=== PATIENT | female | born 1960 | race Caucasian/White ===

== ENCOUNTER 2017-01-17 10:30 | Inpatient (IN) | payer OTHER ==
[~2017-01-17] VITALS: Ht 157.5 cm; Wt 67.6 kg
[~2017-01-17 10:30] MED LIST: IPRA3AMP IH
--- NOTE | 2017-01-17 10:30 | NUR ---
Patient was BIBA and taken to bed 02 via gurney per EMS.
[2017-01-17 10:32] VITALS: BP 114/73
--- NOTE | 2017-01-17 10:45 | NUR ---
56 YO FEMALE BIB EMS FROM HOME FOR ABDOMINAL PAIN, VOMITING AND DIARRHEA. HX OF COPD STARTED LAST NIGHT. SKIN IS PINK/WARM/DRY; AAOX4 WITH EVEN AND STEADY GAIT; LUNGS CLEAR BL; HR EVEN AND REGULAR; PT DENIES ANY FEVER, CP, SOB, OR COUGH AT THIS TIME; PATIENT STATES PAIN OF 5/10 AT THIS TIME; VSS; PATIENT POSITIONED FOR COMFORT; HOB ELEVATED; BEDRAILS UP X2; BED DOWN. ER MD MADE AWARE OF PT STATUS.
[2017-01-17] MEDS ORDERED: NACL 0.9% 1,000 ML IV ONE (11:00)
--- NOTE | 2017-01-17 11:06 | NUR ---
XRAY at bedside.
[2017-01-17] MEDS ORDERED: PANTOPRAZOLE 40 MG INJ VIAL IVP ONE (11:35)
[2017-01-17] MEDS ORDERED: ASPIRIN 81 MG TAB.CHEW PO ONE (11:35)
[2017-01-17] MEDS ORDERED: MORPHINE SULFATE 2 MG/ML SYR IVP ONE (11:35)
[2017-01-17 11:41] LABS: HEMATOCRIT 45.7 % (36-48); HEMOGLOBIN 15.2 g/dL (12.0-16.0); MEAN CORPUSCULAR HEMOGLOBIN 28 pg (27-31); MEAN CORPUSCULAR HGB CONC 33 g/dL (33-37); MEAN CORPUSCULAR VOLUME 84 fL (80-94); PLATELET COUNT (AUTO) 132 K/uL (140-450); RED BLOOD CELL COUNT(AUTO) 5.48 MIL/uL (4.20-5.40); RED CELL DISTRIBUTION WIDTH 14.9 % (11.6-13.7); WHITE BLOOD COUNT (AUTO) 7.4 K/uL (4.8-10.8)
[2017-01-17 11:42] LABS: ANION GAP 14.9 (8-16); BASOPHILS # (AUTO) 1.2 K/uL (0.00-0.22); BASOPHILS % (AUTO) 1.2 % (0.0-2.0); CREATININE 0.8 mg/dL (0.6-1.3); EOSINOPHILS # (AUTO) 5.3 K/uL (0-0.4); EOSINOPHILS % (AUTO) 5.3 % (0.0-4.0); LYMPHOCYTES # (AUTO) 47.6 K/uL (2.5-16.5); LYMPHOCYTES % (AUTO) 47.6 % (20.5-51.1); MONOCYTES # (AUTO) 7.4 K/uL (0.8-1.0); MONOCYTES % (AUTO) 7.4 % (1.7-9.3); NEUTROPHILS # (AUTO) 38.5 K/uL (1.8-7.7); NEUTROPHILS % (AUTO) 38.5 % (42.2-75.2); POTASSIUM 3.9 mmol/L (3.5-5.1)
[2017-01-17 11:47] LABS: ALBUMIN 2.8 g/dL (3.4-5.0)
[2017-01-17] MEDS ORDERED: NACL 0.9% 2,000 ML IV ONE (12:30)
[2017-01-17] MEDS ORDERED: ALBUTEROL 0.083% 2.5 MG/3 ML NEBU IH PRN (14:05)
[2017-01-17] MEDS ORDERED: ONDANSETRON 4 MG/2 ML VIAL IVP PRN (14:05)
--- NOTE | 2017-01-17 15:58 | NUR ---
Patient will be admitted to care of DR FRANCO, DR WU. Admited to TELE. Will go to room 108A. Belongings list completed. Report to LEVAR ALBARRAN.
[2017-01-17] MEDS ORDERED: MORPHINE SULFATE 2 MG/ML SYR IVP PRN (16:00)
--- NOTE | 2017-01-17 16:30 | NUR ---
RECEIVED PT FROM ER. PT IS AAOX4. PT C/O OF EPIGASTRIC PAIN 2/10 AT THIS TIME, PAIN IS TOLERABLE FOR PT. PT SKIN INTACT. SCAR NOTED ON THE RIGHT KNEE. PT HAD BLACK DIARRHEA SINCE YESTERDAY. PT VITALS SIGNS STABLE. NO ACUTE S/S OF DISTRESS NOTED. PT IS ON 5L O2 VIA NC. O2 SAT IS 89%. BED ALARM IS ON. FALL PRECAUTIONS IN PLACE. CALL LIGHT WITHIN REACH. WILL CONTINUE TO MONITOR.
--- NOTE | 2017-01-17 17:30 | NUR ---
PT HAD DIARRHEA, BLACK LIQ STOOL. CLEANED THE PT, CHANGED NEW BED SHEET AND GOWN. PT TOLERATED FAIR.
[2017-01-17 18:39] VITALS: BP 117/69
--- NOTE | 2017-01-17 19:40 | NUR ---
ENDORSED PT TO NIGHT RN, PT IN STABLE CONDITION. PT'S O2 SAT 88% ON 4L OF OXYGEN VIA NC.
--- NOTE | 2017-01-17 19:41 | NUR ---
RECEIVED REPORT FROM DAY NURSE PT IN STABLE CONDITION. NO S/S OF DISTRESS NOTED. PT IS ON 5L O2 VIA NC, SKIN IS INTACT. IV TO L AC 20 G PATENT AND INTACT. RESPIRATIONS ARE EVEN AND UNLABORED. BOWEL SOUNDS PRESENT. INITIAL ASSESSMENT COMPLETED. PLAN OF CARE DISCUSSED WITH PT AT THE BEDSIDE, ALL SAFETY PRECAUTIONS MET, CALL LIGHT WITHIN REACH, WILL CONTINUE TO MONITOR
--- NOTE | 2017-01-17 20:30 | NUR ---
PAGED DR. KING TO MAKE AWARE OF WATERY BLACK DIARRHEA
--- NOTE | 2017-01-17 20:45 | NUR ---
DR KING PAGED BACK AND ORDERED C-DIFF SPECIMEN
[2017-01-17] MEDS: PANTOPRAZOLE 40 MG INJ VIAL IVP SCH (21:00)
[2017-01-18] VITALS: BP 120/68
--- NOTE | 2017-01-18 00:30 | NUR ---
PT PUT ON CONTACT PRECAUTIONS FOR C-DIFF STOOL SAMPLE
[2017-01-18 04:00] VITALS: BP 116/68
[2017-01-18 05:37] LABS: CARBON DIOXIDE 21.2 mmol/L (21-32); CREATININE 0.8 mg/dL (0.6-1.3); POTASSIUM 4.2 mmol/L (3.5-5.1); TOTAL BILIRUBIN 1.2 mg/dL (0.0-1.0)
[2017-01-18 05:57] LABS: BASOPHILS # (AUTO) 0.4 K/uL (0.00-0.22); BASOPHILS % (AUTO) 4.2 % (0.0-2.0); EOSINOPHILS # (AUTO) 0.5 K/uL (0-0.4); EOSINOPHILS % (AUTO) 4.7 % (0.0-4.0); HEMATOCRIT 43.9 % (36-48); HEMOGLOBIN 14.6 g/dL (12.0-16.0); LYMPHOCYTES # (AUTO) 1.5 K/uL (2.5-16.5); LYMPHOCYTES % (AUTO) 15.6 % (20.5-51.1); MEAN CORPUSCULAR HEMOGLOBIN 28 pg (27-31); MEAN CORPUSCULAR HGB CONC 33 g/dL (33-37); MEAN CORPUSCULAR VOLUME 83 fL (80-94); MONOCYTES # (AUTO) 0.5 K/uL (0.8-1.0); NEUTROPHILS % (AUTO) 70.5 % (42.2-75.2); PLATELET COUNT (AUTO) 112 K/uL (140-450); RED CELL DISTRIBUTION WIDTH 14.4 % (11.6-13.7); WHITE BLOOD COUNT (AUTO) 9.9 K/uL (4.8-10.8)
--- NOTE | 2017-01-18 07:20 | NUR ---
RECEIVED REPORT FROM NIGHT NURSE PT IN STABLE CONDITION. NO S/S OF DISTRESS NOTED. PT IS ON 5L O2 VIA NC, O2 SAT 87%, SKIN IS INTACT, HOWEVER, THERE IS REDNESS AROUND THE AREA OF THE ANUS. IV TO L AC 20 G PATENT AND INTACT, SL. RESPIRATIONS ARE EVEN AND UNLABORED. BOWEL SOUNDS PRESENT. INITIAL ASSESSMENT COMPLETED. PLAN OF CARE DISCUSSED WITH PT AT THE BEDSIDE, ALL SAFETY PRECAUTIONS MET, CALL LIGHT WITHIN REACH, WILL CONTINUE TO MONITOR
--- NOTE | 2017-01-18 07:36 | NUR ---
REPORT GIVEN TO DAY NURSE AT THE BEDSIDE FOR CONTINUITY OF CARE, PT IN STABLE CONDITION
[2017-01-18 08:00] VITALS: BP 116/74
--- NOTE | 2017-01-18 08:26 | NUR ---
PATIENT HAS BEEN SCREENED AND CATEGORIZED MODERATE NUTRITION RISK. PATIENT WILL BE SEEN WITHIN 3-5 DAYS OF ADMISSION. 01/20/17-01/22/[address]
[2017-01-18] MEDS: PANTOPRAZOLE 40 MG INJ VIAL IVP SCH ×2 (08:35→21:09)
[2017-01-18] MEDS ORDERED: ENOXAPARIN 40 MG/0.4 ML SYR SUBQ SCH (09:00)
[2017-01-18] MEDS: ACETAMINOPHEN 325 MG TAB PO PRN (10:53)
--- NOTE | 2017-01-18 10:55 | NUR ---
PT TEMP 101.4, TYLENOL GIVEN. PAGED , WAITING FOR CALL BACK.
--- NOTE | 2017-01-18 11:03 | NUR ---
RECEIVED REPORT FROM NIGHT NURSE PT IN STABLE CONDITION. NO S/S OF DISTRESS NOTED. PT IS ON 5L O2 VIA NC, O2 SAT 87%, SKIN IS INTACT, HOWEVER, THERE IS REDNESS AROUND THE AREA OF THE ANUS. IV TO L AC 20 G PATENT AND INTACT, SL. RESPIRATIONS ARE EVEN AND UNLABORED. BOWEL SOUNDS PRESENT. INITIAL ASSESSMENT COMPLETED. PLAN OF CARE DISCUSSED WITH PT AT THE BEDSIDE, ALL SAFETY PRECAUTIONS MET, CALL LIGHT WITHIN REACH, WILL CONTINUE TO MONITOR Addendum: 01/18/17 at 1105 by Darrin Saab RN PLEASE DISREGARD, WRONG TIME.
--- NOTE | 2017-01-18 11:19 | NUR ---
CM NOTE INITIAL REVIEW FAXED TO [facility] [phone] ERNESTINE Mcgee # [phone] Addendum: 01/26/17 at 0903 by Julia Peres LATE ENTRY FOR 01/18/17 PER AMANDA BONNIE JULY # [phone], REVIEWS SHOULD ONLY BE SENT TO [facility]
[2017-01-18] MEDS ORDERED: Z-GUARD PASTE TP ONE (11:40)
--- NOTE | 2017-01-18 11:40 | NUR ---
DR FRANCO CALLED BACK, NEW ORDERS PUT IN. ROCEPHIN 1G Q12H, Z GUARD FOR THE BOTTOM PRN, RT SERVICE FOR COPD, CLEAN CATCH FOR URINE.
[2017-01-18] MEDS ORDERED: Z-GUARD PASTE TP PRN (11:45)
[2017-01-18 12:20] VITALS: BP 103/63
--- NOTE | 2017-01-18 12:38 | NUR ---
RT EVALUATED PT HR 100 RR 18 O2 SAT 97% ON 4LNC NO DISTRESS NOTED AT THIS TIME, PT HAS ORDER FOR ALBUTEROL 2.5MG Q6PRN RT RECOMMEND TO HAVE PT STAY ON ROUTINE PLAN FOR BREATHING TX AT THIS TIME
[2017-01-18] MEDS ORDERED: NACL 0.9% 1,000 ML IV ONE (13:50)
[2017-01-18] MEDS ORDERED: ALBUMIN HUMAN 25% 100 ML IV SCH (14:00)
--- NOTE | 2017-01-18 14:30 | NUR ---
DR FRANCO HAS SEEN THE PT, MADE DR FRANCO AWARE OF ELEVATED TEMP. DR. FRANCO WILL PUT IN ORDERS.
[2017-01-18 17:54] VITALS: BP 98/57
--- NOTE | 2017-01-18 19:30 | NUR ---
ENDORSED PT TO NIGHT RN, PT IN STABLE CONDITION. PT'S O2 SAT 89% ON 15L OF OXYGEN VIA SIMPLE MASK.
--- NOTE | 2017-01-18 19:31 | NUR ---
RECEIVED PT SLEEPING, EASILY AROUSABLE, AAOX4, ON VENTURI MASK WITH 50% FIO2, SAT-93-95%, NO SOB NOTED, DENIES ANY PAIN, IVF INFUSING WELL, MAINTAIN ON CONTACT ISOLATION FOR C-DIFF, SAFETY MEASURES IN PLACE, CALL LIGHT WITHIN REACH.
[2017-01-18] MEDS: IPRATROPIUM 0.02% 0.5 MG/2.5 ML NEBU IH SCH (19:47)
[2017-01-18] MEDS: ALBUTEROL 0.083% 2.5 MG/3 ML NEBU IH SCH (19:47)
[2017-01-18 20:00] VITALS: BP 108/68
[2017-01-18] MEDS: PIPER/TAZO 3.375GM/D5W PREMIX 50 ML IV SCH (21:10)
--- NOTE | 2017-01-18 21:10 | NUR ---
DUE MEDS ADMINISTERED, PT WANTS TO EAT HER DINNER, PUT ON O2 AT 4L/NC, ASSISTED BY KATLYN DONNELLY, ABLE TO FINISHED 75% DINNER, ALL NEEDS ATTENDED.
[2017-01-18] MEDS: metroNIDAZOLE 500 MG/NS PREMIX 100 ML IV SCH (21:47)
[2017-01-18] MEDS: NACL 0.9% 1,000 ML IV SCH (21:47)
--- NOTE | 2017-01-18 23:30 | NUR ---
PT SLEEPING, EASILY AROUSABLE, VITAL SIGNS STABLE, NO SIGNS OF DISTRESS, CONTINUE ON VENTURI MASK AT 50% FIO2, IVF INFUSING WELL, CONTINUE TO MONITOR CLOSELY.
[2017-01-19] VITALS: BP 113/72
[2017-01-19] MEDS: IPRATROPIUM 0.02% 0.5 MG/2.5 ML NEBU IH SCH ×4 (01:00→19:07)
[2017-01-19] MEDS: ALBUTEROL 0.083% 2.5 MG/3 ML NEBU IH SCH ×4 (01:00→19:07)
--- NOTE | 2017-01-19 01:10 | NUR ---
PT INCONTINENT OF URINE AND STOOL, LARGE WATERY BLACK STOOL MIXED WITH URINE NOTED, PERINEAL CARE DONE, UNABLE TO COLLECT URINE AT THIS TIME, REPOSITION AND OFFLOAD PRESSURE AREAS, MONITORED CLOSELY.
[2017-01-19] MEDS: ACETAMINOPHEN 325 MG TAB PO PRN ×2 (02:00→23:26)
--- NOTE | 2017-01-19 03:50 | NUR ---
PT STILL COMPLAINING OF BACK PAIN, PAGED DR KING COVERING FOR DR FRANCO, WITH ORDER FOR MORPHINE IVP Q6H PRN, WILL CARRY OUT, VITAL SIGNS STABLE, SAT-91% ON VENTURI MASK, MONITORED CLOSELY.
[2017-01-19 04:00] VITALS: BP 106/70
[2017-01-19] MEDS: PIPER/TAZO 3.375GM/D5W PREMIX 50 ML IV SCH ×3 (04:25→20:24)
[2017-01-19] MEDS: metroNIDAZOLE 500 MG/NS PREMIX 100 ML IV SCH ×3 (05:29→21:43)
[2017-01-19] MEDS: MORPHINE SULFATE 2 MG/ML SYR IVP PRN ×2 (05:30→17:22)
--- NOTE | 2017-01-19 05:30 | NUR ---
PT COMPLAINING OF BACK PAIN, MEDICATED PRN WITH MORPHINE IVP, DUE FLAGYL IVPB ADMINISTERED, MULTIPLE WATERY STOOLS THE WHOLE SHIFT, IVF INFUSING WELL, MONITORED CLOSELY.
--- NOTE | 2017-01-19 07:17 | NUR ---
PT AWAKE, NO SIGNS OF DISTRESS, REPORT GIVEN TO LEVAR SARABIA FOR CONTINUITY OF CARE.
--- NOTE | 2017-01-19 07:18 | NUR ---
RECEIVED REPORT FROM GRIP BOSS NURSE JOHNNY AT BEDSIDE FOR CONTINUITY OF CARE. PT IS AWAKE AND ORIENTED. INTRODUCED SELF AND UPDATED BOARD. PT ON VENTURI MASK. RT IN ROOM TO GIVE BREATHING TREATMENT. PT USED BEDPAN. MODERATE AMOUNT OF BROWN DIARRHEA NOTED. CHANGED LINENS. PT DENIES CHEST PAIN. WILL CONTINUE TO MONITOR.
[2017-01-19 08:00] VITALS: BP 96/63
[2017-01-19] MEDS: PANTOPRAZOLE 40 MG INJ VIAL IVP SCH ×2 (08:33→20:24)
[2017-01-19] MEDS: NACL 0.9% 1,000 ML IV SCH ×2 (08:33→19:40)
--- NOTE | 2017-01-19 10:30 | NUR ---
ASSISTED PT TO BEDPAN. MODERATE AMOUNT OF WATERY STOOL NOTED. CLEANED PT AND APPLIED Z-GAURD PAST TO PERINEAL AREA. ASKED IF PT NEEDED ANYTHING ELSE. PT STATED NO. BED IN LOW POSITION CALL LIGHT WITHIN REACH. WILL CONTINUE TO MONITOR.
[2017-01-19 12:00] VITALS: BP 99/65
[2017-01-19 16:00] VITALS: BP 107/66
--- NOTE | 2017-01-19 17:22 | NUR ---
PT COMPLAINED OF LOWER BACK PAIN 10/06. ADMINISTERED MORPHINE FOR PAIN. PT TOLERATED MEDS WELL. ASSISTED PT TO USE BEDPAN. WATERY STOOL NOTED. PT WEARING VENTURI MASK. NO SIGNS OF SOB OR RESPIRATORY DISTRESS. APPLIED O2 SAT PROBE ON EAR LOBE. O2 SAT 97%. NO COMPLAINTS AT THIS TIME WILL CONTINUE TO MONITOR.
--- NOTE | 2017-01-19 19:26 | NUR ---
ENDORSED PT TO BOOKMOBILE LIBRARIAN NURSE JOHNNY AT BEDSIDE FOR CONTINUITY OF CARE. PT IS GETTING BREATHING TX RIGHT NOW. PT IN STABLE CONDITION.
--- NOTE | 2017-01-19 19:27 | NUR ---
RECEIVED PT AWAKE PRESENTLY GETTING BREATHING TX FROM RT NATALIE, VITAL SIGNS STABLE, NO SOB NOTED, DENIES ANY PAIN, IVF INFUSING WELL, PLAN OF CARE DISCUSSED, MAINTAINED ON CONTACT ISOLATION FOR C-DIFF, SAFETY MEASURES IN PLACE, ENCOURAGE TO USE CALL LIGHT FOR ASSISTANCE, SIDE RAILS UP AND BED ALARM ON, CALL LIGHT WITHIN REACH.
[2017-01-19 20:00] VITALS: BP 115/55
--- NOTE | 2017-01-19 20:30 | NUR ---
DUE MEDICATIONS ADMINISTERED, BM WITH WATERY BLACK STOOL MODERATE AMOUNT, PERINEAL CARE DONE, OFFLOAD PRESSURE AREAS, ALL NEEDS ATTENDED.
[2017-01-19] MEDS ORDERED: INFLUENZA VIRUS VACCINE QUAD 0.5 ML SYR IMVAC PRN (22:00)
--- NOTE | 2017-01-19 23:30 | NUR ---
PT SLEEPING, EASILY AROUSABLE, VITAL SIGNS TAKEN, ORAL TEMP-102.1, TYLENOL PO GIVEN, COOLING MEASURES DONE, NO DISTRESS NOTED, MONITORED CLOSELY.
[2017-01-20] VITALS: BP 99/59
--- NOTE | 2017-01-20 | NUR ---
PT SLEEPING, EASILY AROUSABLE, VITAL SIGNS STABLE, AFEBRILE, MONITORED CLOSELY.
[2017-01-20] MEDS: IPRATROPIUM 0.02% 0.5 MG/2.5 ML NEBU IH SCH ×4 (01:09→19:40)
[2017-01-20] MEDS: ALBUTEROL 0.083% 2.5 MG/3 ML NEBU IH SCH ×4 (01:10→19:40)
--- NOTE | 2017-01-20 01:40 | NUR ---
TEMP RECHECKED-98.4, COMPLAINING OF BACK PAIN, SBP IN THE 90'S, PT MADE AWARE OF BP TOO LOW FOR MORPHINE IVP AT THIS TIME, VERBALIZED UNDERSTANDING, REPOSITIONED FOR COMFORT.
[2017-01-20 04:00] VITALS: BP 102/58
[2017-01-20] MEDS: PIPER/TAZO 3.375GM/D5W PREMIX 50 ML IV SCH ×2 (04:03→13:45)
[2017-01-20] MEDS: NACL 0.9% 1,000 ML IV SCH ×2 (04:04→15:40)
[2017-01-20] MEDS: metroNIDAZOLE 500 MG/NS PREMIX 100 ML IV SCH ×3 (05:35→21:53)
--- NOTE | 2017-01-20 05:35 | NUR ---
PT COMPLAINING OF BACK PAIN, BP-921/56, TOO LOW FOR MORPHINE, VERBALIZED UNDERSTANDING, DUE IV ANTIBIOTIC ADMINISTERED, MONITORED CLOSELY.
--- NOTE | 2017-01-20 07:08 | NUR ---
PT AWAKE, NO SIGNS OF DISTRESS, REPORT GIVEN TO LEVAR SARABIA FOR CONTINUITY OF CARE.
--- NOTE | 2017-01-20 07:09 | NUR ---
RECEIVED REPORT FROM SUSTAINABILITY ENGINEER NURSE JOHNNY AT BEDSIDE. PT IS AWAKE AND ORIENTED. INTRODUCED SELF AND UPDATED BOARD. NO SIGNS OF DISTRESS. WILL CONTINUE WITH CURRENT PLAN OF CARE.
[2017-01-20 08:00] VITALS: BP 113/67
[2017-01-20] MEDS ORDERED: ceFAZolin 1,000 MG VIAL ONE (08:51)
[2017-01-20] MEDS: MORPHINE SULFATE 2 MG/ML SYR IVP PRN ×2 (08:58→21:40)
[2017-01-20 10:09] LABS: BASOPHILS # (AUTO) 0.4 K/uL (0.00-0.22); BASOPHILS % (AUTO) 4.4 % (0.0-2.0); EOSINOPHILS # (AUTO) 0.7 K/uL (0-0.4); EOSINOPHILS % (AUTO) 8.5 % (0.0-4.0); HEMOGLOBIN 12.1 g/dL (12.0-16.0); LYMPHOCYTES # (AUTO) 2.1 K/uL (2.5-16.5); LYMPHOCYTES % (AUTO) 26.4 % (20.5-51.1); MEAN CORPUSCULAR HEMOGLOBIN 27 pg (27-31); MEAN CORPUSCULAR HGB CONC 33 g/dL (33-37); MEAN CORPUSCULAR VOLUME 83 fL (80-94); MONOCYTES # (AUTO) 0.5 K/uL (0.8-1.0); MONOCYTES % (AUTO) 6.5 % (1.7-9.3); NEUTROPHILS # (AUTO) 4.4 K/uL (1.8-7.7); NEUTROPHILS % (AUTO) 54.2 % (42.2-75.2); PLATELET COUNT (AUTO) 106 K/uL (140-450); RED BLOOD CELL COUNT(AUTO) 4.45 MIL/uL (4.20-5.40); RED CELL DISTRIBUTION WIDTH 14.6 % (11.6-13.7); WHITE BLOOD COUNT (AUTO) 8.1 K/uL (4.8-10.8)
[2017-01-20] MEDS: PANTOPRAZOLE 40 MG INJ VIAL IVP SCH ×2 (10:42→21:41)
[2017-01-20 10:44] LABS: ALBUMIN 2.6 g/dL (3.4-5.0); ANION GAP 12.8 (8-16); CARBON DIOXIDE 23.2 mmol/L (21-32); CREATININE 0.6 mg/dL (0.6-1.3)
[2017-01-20 12:00] VITALS: BP 101/59
--- NOTE | 2017-01-20 13:49 | NUR ---
CHECKED ON PT IN ROOM. AT BEDSIDE. ADMINISTERED ZOSYN IVPB. PT TOLERATING MEDS WELL. NO SIGNS OF DISTRESS. PT IS SITTING UP IN BED WATCHING TV. BED IN LOW POSITION. CALL LIGHT WITHIN REACH. WILL CONTINUE TO MONITOR.
[2017-01-20] MEDS ORDERED: POTASSIUM CHLORIDE 10 MEQ TABER PO ONE (14:15)
[2017-01-20] MEDS ORDERED: POTASSIUM CHLORIDE 10 MEQ TABER PO SCH (14:28)
[2017-01-20] MEDS: LOPERAMIDE 2 MG CAP PO PRN ×2 (14:44→21:50)
[2017-01-20 16:00] VITALS: BP 105/64
--- NOTE | 2017-01-20 19:15 | NUR ---
ENDORSED PT TO WOOD BOATBUILDER NURSE LOLA AT BEDSIDE FOR CONTINUITY OF CARE. PT IN STABLE CONDITION.
--- NOTE | 2017-01-20 19:20 | NUR ---
RECEIVED PT FROM CORNELL RN PT IS AAOX4 GENERALIZED WEAKNESS, IV ON LEFT AC GAUGE # 20 INFUSING WELL COMPLAINTS OF DWATERY DISRRHEA, LINEN CHANGED PERINEAL REDNESS MEDIC GIVEN ORDER REPOSITIONED INITIAL ASSESSMENT DONE
[2017-01-20 20:00] VITALS: BP 117/66
--- NOTE | 2017-01-20 22:41 | NUR ---
AFTER PAIN MEDIC GIVEN PT SLEEPS QUIET
[2017-01-21] VITALS (8 sets, daily range): BP systolic 84–112; BP diastolic 48–70
[2017-01-21] MEDS: IPRATROPIUM 0.02% 0.5 MG/2.5 ML NEBU IH SCH ×4 (01:30→19:25)
[2017-01-21] MEDS: ALBUTEROL 0.083% 2.5 MG/3 ML NEBU IH SCH ×4 (01:30→19:25)
--- NOTE | 2017-01-21 01:46 | NUR ---
PT SLEEPING WELL DENIES ANY PAIN OR DIARRHEA AT THIS TIME ON TELEMETRY SR
--- NOTE | 2017-01-21 04:00 | NUR ---
PT DENIES ANY PAIN AT THISTIME, NOT DIARRHEA SINCE LAST NIGHT, IV ON LEFT AC INFUSING WELL, PT WILL BE ENDORSED TO BRIDGETT SHERMAN FOR CONTINUITY OF CARE
[2017-01-21] MEDS: NACL 0.9% 1,000 ML IV SCH (04:22)
--- NOTE | 2017-01-21 05:05 | NUR ---
ASSUMED CARE. RECEIVED ALERT,ORIENTED. AFEBRILE, NOT IN ACUTE DISTRESS. DENIES ANY PAIN OR DISCOMFORT. NO DIARRHEA NOTED AT THIS TIME. ON CONTACT ISOLATION FOR C.DIFF. VS STABLE, WILL CONTINUE TO MONITOR.
[2017-01-21] MEDS: metroNIDAZOLE 500 MG/NS PREMIX 100 ML IV SCH ×3 (06:19→20:51)
[2017-01-21] MEDS ORDERED: metroNIDAZOLE 500 MG/NS PREMIX 100 ML IV ONE (06:23)
--- NOTE | 2017-01-21 07:20 | NUR ---
ENDORSED CARE TO TAYO RN.
--- NOTE | 2017-01-21 07:25 | NUR ---
ENDORSEMENT RECEIVED FROM WAREHOUSE ATTENDANT NURSE. PATIENT IS STABLE AT THIS TIME. RESPIRATION EVEN. SKIN DRY AND WARM TO THE TOUCH. CALL LIGHT WITHIN REACH. WILL CONTINUE TO MONITOR
--- NOTE | 2017-01-21 08:00 | NUR ---
PATIENT IS AWAKE, ALERT, ORIENTED X 4. 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 RESPIRATION EVEN, LUNGS SOUND CLEAR THROUGHOUT, DENIED SOB. CARDIAC WITH S1,S2 PRESENT. BOWEL SOUND ACTIVE 4 QUADRANTS. SKIN DRY AND WARM TO THE TOUCH. IV 20G ON LEFT AC INFUSING NS @ 100 ML/HR, PATENT AND INTACT. PEDAL PULSE EQUAL. DENIED PAIN AT THIS TIME. BED NI WAS GIVEN. CALL LIGHT WITHIN REACH. WILL CONTINUE TO MONITOR
[2017-01-21] MEDS: LOPERAMIDE 2 MG CAP PO PRN ×2 (09:05→15:54)
[2017-01-21] MEDS: PANTOPRAZOLE 40 MG INJ VIAL IVP SCH ×2 (09:05→20:52)
--- NOTE | 2017-01-21 10:20 | NUR ---
PATIENT IS ASLEEP COMFORTABLY. NO DISTRESS NOTED. RESPIRATION EVEN. CALL LIGHT WITHIN REACH. WILL CONTINUE TO MONITOR
[2017-01-21 11:30] LABS: HEMATOCRIT 35.5 % (36-48); HEMOGLOBIN 11.4 g/dL (12.0-16.0); MEAN CORPUSCULAR HEMOGLOBIN 27 pg (27-31); MEAN CORPUSCULAR HGB CONC 32 g/dL (33-37); MEAN CORPUSCULAR VOLUME 84 fL (80-94); PLATELET COUNT (AUTO) 99 K/uL (140-450); RED BLOOD CELL COUNT(AUTO) 4.24 MIL/uL (4.20-5.40); RED CELL DISTRIBUTION WIDTH 14.6 % (11.6-13.7); WHITE BLOOD COUNT (AUTO) 5.7 K/uL (4.8-10.8)
[2017-01-21 11:48] LABS: ANION GAP 10.5 (8-16); CARBON DIOXIDE 23.9 mmol/L (21-32); CREATININE 0.5 mg/dL (0.6-1.3); POTASSIUM 3.4 mmol/L (3.5-5.1)
[2017-01-21 11:49] LABS: ALBUMIN 2.3 g/dL (3.4-5.0); TOTAL BILIRUBIN 0.6 mg/dL (0.0-1.0)
[2017-01-21 12:05] LABS: LYMPHOCYTES % (MANUAL) 34 % (20-46)
[2017-01-21 12:06] LABS: BASOPHILS % (MANUAL) 1 % (0-2); EOSINOPHILS % (MANUAL) 6 % (0-4); MONOCYTES % (MANUAL) 6 % (5-12)
--- NOTE | 2017-01-21 12:35 | NUR ---
PT UP AMBULATING DOWN THE HALLWAY WITH STEADY GAIT WITH , FABY WELL, WILL CONTINUE TO MONITOR. Addendum: 01/21/17 at 1746 by Radha Dominguez RN DISREGARD ABOVE MESSAGE, CHARTED ON WRONG PT.
--- NOTE | 2017-01-21 13:21 | NUR ---
DR SAMUELS AT BEDSIDE. Addendum: 01/21/17 at 1746 by Radha Dominguez RN DISREGARD ABOVE MESSAGE, CHARTED ON WRONG PT.
--- NOTE | 2017-01-21 14:05 | NUR ---
WATERY STOOL X1, PAD CHANGED, PERICARE DONE, Z GUARD APPLIED TO PERIAREA.
[2017-01-21] MEDS: MORPHINE SULFATE 2 MG/ML SYR IVP PRN (14:34)
[2017-01-21] MEDS ORDERED: POTASSIUM CHLORIDE 10 MEQ TABER PO SCH (15:00)
[2017-01-21] MEDS: ACETAMINOPHEN 325 MG TAB PO PRN (16:19)
--- NOTE | 2017-01-21 16:19 | NUR ---
ATTEMPTED TO CHANGE FROM OXYMIZER TO NASAL CANULA, PT DESATS TO 78-80% WITH 5L NC, PT PLACED BACK ON OXYMIZER 7L PT SATS 88-89%, SKIN HOT TO TOUCH, TEMP 103.0 ORALLY, BP 98/54, HR 111, TYLENOL GIVEN, PT DENIES N/V, DENIES PAIN OR DISCOMFORT, WILL CONTINUE TO MONITOR.
[2017-01-21] MEDS ORDERED: NACL 0.9% 400 ML IV SCH (17:30)
--- NOTE | 2017-01-21 17:30 | NUR ---
REPEAT TEMP 102. 0 ORALLY, BP 84/48, HR 104, O2 SAT 89% ON 7L OXYMIZER, PT AWAKE RESTING QUIETLY IN NAD, RESP EVEN UNLABORED, DENIES CHEST PAIN, DENIES N/V, DR PAULSON TRAINING DIRECTOR FOR DR SALVADOR SORIA TO NOTIFY.
--- NOTE | 2017-01-21 17:40 | NUR ---
400ML NS BOLUS STARTED FOR DECREASED BP PER DR PAULSON, IV SITE WNL, PT AWAKE ALERT DENIES PAIN OR DISCOMFORT, WILL CONTINUE TO MONITOR.
[2017-01-21] MEDS: PIPER/TAZO 3.375GM/D5W PREMIX 50 ML IV SCH ×2 (19:01→23:27)
[2017-01-21] MEDS: NACL 0.9% 500 ML IV SCH ×2 (19:04→23:17)
--- NOTE | 2017-01-21 19:32 | NUR ---
PATIENT REPORT RECEIVED FROM MORNING NURSE AT BEDSIDE. PATIENT IS AWAKE, ALERT AND ORIENTED. NO SIGNS AND SYMPTOMS OF DISTRESS NOTED. NO COMPLAINTS OF PAIN AT THIS TIME. PATIENT IS ON O2 7L VIA OXYMIZER. BED IN LOWEST POSITION, SIDE RAILS UP AND CALL LIGHT WITHIN REACH. WILL CONTINUE TO MONITOR.
--- NOTE | 2017-01-21 19:32 | NUR ---
ENDORSEMENT GIVEN TO THE COMPLIANCE PROFESSIONAL NURSE. PATIENT IS STABLE AT THIS TIME
[2017-01-22] VITALS (8 sets, daily range): BP systolic 93–117; BP diastolic 48–73
[2017-01-22] MEDS: IPRATROPIUM 0.02% 0.5 MG/2.5 ML NEBU IH SCH ×4 (01:00→19:00)
[2017-01-22] MEDS: ALBUTEROL 0.083% 2.5 MG/3 ML NEBU IH SCH ×4 (01:00→19:00)
[2017-01-22 01:16] LABS: BILIRUBIN,URINE NEGATIVE (NEGATIVE); BLOOD, URINE TRACE-I (NEGATIVE); COLOR,URINE YELLOW (YELLOW); LEUKOCYTE ESTERASE ,URINE 3+ (NEGATIVE); NITRITE, URINE NEGATIVE (NEGATIVE); PH,URINE 5.5 (5.0-9.0); UGLUCOSE NEGATIVE (NEGATIVE)
[2017-01-22 01:19] LABS: APPEARANCE,URINE SLIGHTLY HAZY (CLEAR)
[2017-01-22 01:26] LABS: RBC,URINE 0-5 (RARE) /HPF (0-5)
[2017-01-22] MEDS: NACL 0.9% 500 ML IV SCH ×3 (03:44→13:49)
[2017-01-22 03:59] LABS: HEMATOCRIT 35.4 % (36-48); HEMOGLOBIN 11.4 g/dL (12.0-16.0); MEAN CORPUSCULAR HEMOGLOBIN 27 pg (27-31); MEAN CORPUSCULAR HGB CONC 32 g/dL (33-37); MEAN CORPUSCULAR VOLUME 84 fL (80-94); PLATELET COUNT (AUTO) 89 K/uL (140-450); RED BLOOD CELL COUNT(AUTO) 4.23 MIL/uL (4.20-5.40); RED CELL DISTRIBUTION WIDTH 14.7 % (11.6-13.7); WHITE BLOOD COUNT (AUTO) 5.1 K/uL (4.8-10.8)
[2017-01-22] MEDS: metroNIDAZOLE 500 MG/NS PREMIX 100 ML IV SCH ×3 (04:15→20:15)
[2017-01-22 04:25] LABS: ANION GAP 9.1 (8-16); CARBON DIOXIDE 25.6 mmol/L (21-32); CREATININE 0.7 mg/dL (0.6-1.3); POTASSIUM 3.7 mmol/L (3.5-5.1); TOTAL BILIRUBIN 0.7 mg/dL (0.0-1.0)
[2017-01-22 04:26] LABS: ALBUMIN 2.3 g/dL (3.4-5.0)
[2017-01-22 05:22] LABS: BASOPHILS % (MANUAL) 1 % (0-2); EOSINOPHILS % (MANUAL) 14 % (0-4); LYMPHOCYTES % (MANUAL) 37 % (20-46); MONOCYTES % (MANUAL) 11 % (5-12)
[2017-01-22] MEDS: PIPER/TAZO 3.375GM/D5W PREMIX 50 ML IV SCH ×4 (05:59→23:27)
[2017-01-22] MEDS ORDERED: PIPERACILLIN/TAZOBACTAM 3.375 GM VIAL IV ONE (06:03)
--- NOTE | 2017-01-22 07:20 | NUR ---
PATIENT REPORT GIVEN TO MORNING NURSE AT BEDSIDE. PATIENT IS IN STABLE CONDITION.
--- NOTE | 2017-01-22 07:34 | NUR ---
ENDORSEMENT RECEIVED FROM CUSTOM STOCK MAKER NURSE. PATIENT IS STABLE, RESPIRATION EVEN, SKIN DRY AND WARM TO THE TOUCH. CALL LIGHT WITHIN REACH. WILL CONTINUE TO MONITOR.
--- NOTE | 2017-01-22 08:00 | NUR ---
PATIENT AWAKE, ALERT, ORIENTED X 4. RESPIRATION EVEN, LUNG SOUND CLEAR THROUGHOUT. CARDIAC WITH S1, S2 PRESENT. BOWEL SOUND ACTIVE THROUGHOUT. IV 20G ON LEFT AC INFUSING NS @ 75ML/HR, PATENT AND INTACT. DENIED PAIN AT THIS TIME. CALL LIGHT WITHIN REACH. WILL CONTINUE TO MONITOR
[2017-01-22] MEDS ORDERED: metroNIDAZOLE 500 MG TAB PO SCH (09:00)
[2017-01-22] MEDS: PANTOPRAZOLE 40 MG INJ VIAL IVP SCH ×2 (10:00→20:51)
--- NOTE | 2017-01-22 10:30 | NUR ---
PATIENT AWAKE, ALERT. RESPIRATION EVEN, NO DISTRESS NOTED AT THIS TIME. OLD IV ON LEFT AC WAS REMOVED, CATHETER INTACT. IV 20G WAS PLACED ON RIGHT FOREARM. PATIENT TOLERATED WELL. FAMILY AT BEDSIDE. CALL LIGHT WITHIN REACH. WILL CONTINUE TO MONITOR
--- NOTE | 2017-01-22 11:20 | NUR ---
PATIENT HAD LOOSE STOOL X 2. MARY ANN CARE WAS DONE. Z GUARD APPLIED
[2017-01-22] MEDS: LOPERAMIDE 2 MG CAP PO PRN (11:55)
[2017-01-22] MEDS: MORPHINE SULFATE 2 MG/ML SYR IVP PRN (11:57)
--- NOTE | 2017-01-22 13:15 | NUR ---
01/22/17 RD INITIAL ASSESSMENT COMPLETED PLEASE REFER TO NUTRITION ASSESSMENT UNDER CARE ACTIVITY FOR ESTIMATED NUTRITIONAL NEEDS. RD RECOMMENDATIONS: 1. CONTINUE ON FULL LIQUID DIET TOLERATED PER MD DISCRETION. 2. CONSIDER ADVANCING DIET TO REGULAR DIET TOLERATED. 3. CONSULT RDN PRN. 4. RD WILL F/U 3-5 DAYS; MODERATE RISK. ERNIE CORONA MS, RDN
[2017-01-22] MEDS ORDERED: FUROSEMIDE 20 MG/2 ML VIAL IVP SCH ×2 (14:30→18:20)
--- NOTE | 2017-01-22 14:30 | NUR ---
VS 117/73, 101, 88% 12L OXIMIZER, 101.4. WILL MEDICATE PER ORDER. CALL LIGHT WITHIN REACH. WILL CONTINUE TO MONITOR. OBTAINED CONSENT FOR CT SCAN OF THE CHEST
[2017-01-22] MEDS: ACETAMINOPHEN 325 MG TAB PO PRN (14:34)
--- NOTE | 2017-01-22 16:00 | NUR ---
TEMPERATURE 103.2. COOL MEASURE WAS APPLIED. ICE PACK WAS PUT UNDER BILATERAL AXILLARY. CALL LIGHT WITHIN REACH. WILL CONTINUE TO MONITOR
--- NOTE | 2017-01-22 16:45 | NUR ---
CALLED AND NOTIFIED DR. PATEL REGARDING LOW PRESSURE 93/48, 105, 102.2,88% 12L OXIMIZER. WAS ADVISED TO CONTINUE GIVING LASIX. WILL CONTINUE TO MONITOR
--- NOTE | 2017-01-22 18:29 | NUR ---
PATIENT CONTINUED HAVING FEVER 102.3. DR. FRANCO WAS NOTIFIED. WILL MEDICATE PER ORDER. WILL CONTINUE TO MONITOR
--- NOTE | 2017-01-22 19:01 | NUR ---
DR. BIRD WAS AT BEDSIDE. ADVISED TO HOLD LASIX DUE TO LOW BLOOD PRESSURE 93/48.
[2017-01-22] MEDS ORDERED: VANCOMYCIN PER PHARMACY MC PRN (19:05)
--- NOTE | 2017-01-22 19:40 | NUR ---
ENDORSEMENT WAS GIVEN TO AMMUNITION STORAGE SUPERINTENDENT NURSE. PATIENT IS STABLE AT THIS TIME.
--- NOTE | 2017-01-22 19:41 | NUR ---
PATIENT REPORT RECEIVED BY MORNING NURSE. PATIENT AWAKE, ALERT, AND ORIENTED. NO SIGNS AND SYMPTOMS OF DISTRESS NOTED. NO COMPLAINTS OF PAIN AT THIS TIME. PATIENT ON 12L O2 VIA OXYMIZER BED IN LOWEST POSITION, SIDE RAILS UP AND CALL LIGHT WITHIN REACH. WILL CONTINUE TO MONITOR.
[2017-01-22] MEDS ORDERED: VANCOMYCIN 1GM/DEXT 5% PREMIX 200 ML IV SCH (20:15)
--- NOTE | 2017-01-22 20:20 | NUR ---
RT SAID IT WAS OK TO ADJUST OXYMIZER TO 10L AN HOUR. PT O2 SAT IS CURRENTLY 95
--- NOTE | 2017-01-22 20:21 | NUR ---
NO HHN TX GIVEN. CT SCAN [facility] IS READY TO TAKE PT. NO SOB OR DISTRESS NOTED. PT IN CURRENTLY ON 10 L OXIMIZER SPO2 95% HR 103. RN AT BEDSIDE. WILL CONTINUE TO MONITOR.
--- NOTE | 2017-01-22 20:25 | NUR ---
PATIENT TAKEN TO RADIOLOGY TO GET CT SCAN DONE
[2017-01-23] VITALS: BP 102/64
--- NOTE | 2017-01-23 | NUR ---
PER [facility], VANCOMYCIN PO NOT AVAILABLE IN [place]. PO VANCOMYCIN NEEDS TO BE MIXED BY THE PHARMACY. WILL NOT BE AVAILABLE TONIGHT
[2017-01-23] MEDS: IPRATROPIUM 0.02% 0.5 MG/2.5 ML NEBU IH SCH ×4 (01:03→19:07)
[2017-01-23] MEDS: ALBUTEROL 0.083% 2.5 MG/3 ML NEBU IH SCH ×4 (01:04→19:07)
[2017-01-23 04:00] VITALS: BP 100/67
[2017-01-23] MEDS: metroNIDAZOLE 500 MG/NS PREMIX 100 ML IV SCH ×3 (04:02→21:03)
[2017-01-23] MEDS: PIPER/TAZO 3.375GM/D5W PREMIX 50 ML IV SCH ×3 (05:09→17:20)
[2017-01-23] MEDS: VANCOMYCIN 500 MG VIAL PO SCH ×4 (05:10→17:21)
--- NOTE | 2017-01-23 07:20 | NUR ---
PATIENT REPORT GIVEN TO MORNING NURSE. PATIENT IS IN STABLE CONDITION
[2017-01-23 07:33] LABS: HEMATOCRIT 34.6 % (36-48); HEMOGLOBIN 11.3 g/dL (12.0-16.0); MEAN CORPUSCULAR HEMOGLOBIN 27 pg (27-31); MEAN CORPUSCULAR HGB CONC 33 g/dL (33-37); MEAN CORPUSCULAR VOLUME 83 fL (80-94); PLATELET COUNT (AUTO) 99 K/uL (140-450); RED BLOOD CELL COUNT(AUTO) 4.16 MIL/uL (4.20-5.40); RED CELL DISTRIBUTION WIDTH 14.9 % (11.6-13.7)
[2017-01-23 08:24] LABS: ALBUMIN 2.3 g/dL (3.4-5.0); ANION GAP 8.5 (8-16); CARBON DIOXIDE 28.7 mmol/L (21-32); CREATININE 0.7 mg/dL (0.6-1.3); POTASSIUM 3.2 mmol/L (3.5-5.1); TOTAL BILIRUBIN 0.7 mg/dL (0.0-1.0)
[2017-01-23] MEDS: PANTOPRAZOLE 40 MG INJ VIAL IVP SCH ×2 (09:36→21:03)
[2017-01-23 09:53] LABS: EOSINOPHILS % (MANUAL) 11 % (0-4); LYMPHOCYTES % (MANUAL) 30 % (20-46); MONOCYTES % (MANUAL) 7 % (5-12)
--- NOTE | 2017-01-23 10:34 | NUR ---
CM NOTE CONCURRENT REVIEW, ORDER FOR HOME HEALTH AND PT EVALUATION FAXED TO [facility] [phone] ERNESTINE Mcgee PH# [phone] Addendum: 01/23/17 at 1200 by Julia Peres CM PER PCM BONNIE SINHA PH# [phone], HOME HEALTH FOR HOME PT HAS BEEN SET UP WITH [facility], AUTH# [id number]. FAXED CLINICAL INFO TO [facility] [phone] ATTN: CHUCKIE # [phone]. NURSE KARELY AWARE THAT PATIENT'S NURSE IS TO INFORM [facility] WHEN PATIENT IS DISCHARGED.
[2017-01-23 11:23] VITALS: BP 91/58
[2017-01-23] MEDS: PHARMACY COMMENTS MC SCH ×2 (12:00→17:20)
[2017-01-23] MEDS ORDERED: POTASSIUM CHLORIDE 10 MEQ TABER PO SCH (13:15)
--- NOTE | 2017-01-23 15:12 | NUR ---
PHYSICAL THERAPY CO-SIGN The Physical Therapy Progress Notes documented by Sweep Molder have been reviewed. I CONCUR W/WAITER/WAITRESS DINING CAR NOTE; CONT PER TX PLAN Reviewed/Co-Signed by: Kasia Luna PT Documentation Done by: NIURKA AGEE WAITER/WAITRESS DINING CAR Addendum: 01/23/17 at 1512 by Kasia Luna PT Amended: Links added.
[2017-01-23] MEDS: MORPHINE SULFATE 2 MG/ML SYR IVP PRN (15:43)
[2017-01-23 16:14] VITALS: BP 114/64
--- NOTE | 2017-01-23 19:34 | NUR ---
RECEIVED FROM AM RN IN BED SITTING UP WITH BREATHING TREATMENT ON GOING . RESPIRATORY THERAPIST AT BEDSIDE. AWAKE AND ALERT. ISOLATION PRECAUTION RT C-DIFF. IVF SITE TO LAC#20.
[2017-01-23 20:00] VITALS: BP 112/68
[2017-01-23] MEDS: ACETAMINOPHEN 325 MG TAB PO PRN (21:17)
--- NOTE | 2017-01-23 21:21 | NUR ---
PT. REQUESTED FOR TYLENOL RT WITH HEADACHE. ABLE TO VERBALIZE SIMPLE NEEDS IN [place] WELL. ABLE TO USE CALL LIGHT FOR HELP OR IF IN PAIN. TELEMETRY MONITORING. 02 SAT WITH 02@ 7 L/OXYMIZER IS 88%. NO SOB NOTED.
[2017-01-24] MEDS: PIPER/TAZO 3.375GM/D5W PREMIX 50 ML IV SCH ×3 (00:16→12:57)
[2017-01-24] MEDS: PHARMACY COMMENTS MC SCH ×4 (00:16→18:00)
[2017-01-24] MEDS: VANCOMYCIN 500 MG VIAL PO SCH ×5 (00:17→23:58)
[2017-01-24] MEDS: IPRATROPIUM 0.02% 0.5 MG/2.5 ML NEBU IH SCH ×4 (00:18→18:53)
[2017-01-24] MEDS: ALBUTEROL 0.083% 2.5 MG/3 ML NEBU IH SCH ×4 (00:20→18:53)
[2017-01-24 00:22] VITALS: BP 98/56
--- NOTE | 2017-01-24 00:24 | NUR ---
PT. AWAKE STILL AT THIS TIME. ENCOURAGED TO GO TO SLEEP. VERBALIZES WELL. TELEMETRY MONITORING.
--- NOTE | 2017-01-24 02:34 | NUR ---
SLEEPING. NO RESTLESSNESS NOTED. TELEMETRY MONITORING AND CALL LIGHT WITH IN REACH.
[2017-01-24 04:19] VITALS: BP 99/66
--- NOTE | 2017-01-24 04:21 | NUR ---
SLEEPING. WOKE UP EASILY WHEN VITAL SIGNS WERE TAKEN. TELEMETRY MONITORING.
[2017-01-24] MEDS: metroNIDAZOLE 500 MG/NS PREMIX 100 ML IV SCH ×3 (04:55→20:52)
--- NOTE | 2017-01-24 06:50 | NUR ---
PT. WENT BACK TO SLEEP. AM PERSONAL HYGIENE RENDERED BY CNAS. NO PAIN COMPLAINTS DONE THIS SHIFT. TELEMETRY MONITORING.
[2017-01-24 07:09] LABS: HEMOGLOBIN 11.1 g/dL (12.0-16.0); MEAN CORPUSCULAR HEMOGLOBIN 27 pg (27-31); MEAN CORPUSCULAR HGB CONC 33 g/dL (33-37); MEAN CORPUSCULAR VOLUME 83 fL (80-94); PLATELET COUNT (AUTO) 134 K/uL (140-450); RED BLOOD CELL COUNT(AUTO) 4.08 MIL/uL (4.20-5.40); RED CELL DISTRIBUTION WIDTH 15.1 % (11.6-13.7); WHITE BLOOD COUNT (AUTO) 4.3 K/uL (4.8-10.8)
--- NOTE | 2017-01-24 07:30 | NUR ---
RECEIVED REPORT FROM HOUSE PIPING INSPECTOR RN. PATIENT HAS OXIMIZER ON AT 7L. RESPIRATORY EFFORT IS EVEN AND UNLABORED. PATIENT ON C-DIFF PRECAUTION. HAS IV INFUSING 10 ML/HR TO RIGHT FA 22G. SITE IS CLEAN, DRY, PATENT AND INTACT. BED IN LOWEST POSITION, CALL LIGHT PLACED WITHIN REACH. WILL CONTINUE TO MONITOR.
[2017-01-24 07:41] LABS: ALBUMIN 2.1 g/dL (3.4-5.0); ANION GAP 7.2 (8-16); CARBON DIOXIDE 28.3 mmol/L (21-32); CREATININE 0.7 mg/dL (0.6-1.3); POTASSIUM 3.5 mmol/L (3.5-5.1); TOTAL BILIRUBIN 0.8 mg/dL (0.0-1.0)
[2017-01-24 07:43] LABS: EOSINOPHILS % (MANUAL) 3 % (0-4); LYMPHOCYTES % (MANUAL) 35 % (20-46); MONOCYTES % (MANUAL) 6 % (5-12)
[2017-01-24 08:00] VITALS: BP 105/59
[2017-01-24] MEDS ORDERED: ENOXAPARIN 40 MG/0.4 ML SYR SUBQ SCH (09:00)
[2017-01-24] MEDS: PANTOPRAZOLE 40 MG INJ VIAL IVP SCH ×2 (09:44→20:52)
[2017-01-24] MEDS: LOPERAMIDE 2 MG CAP PO PRN (09:51)
--- NOTE | 2017-01-24 11:17 | NUR ---
CM NOTE CONCURRENT REVIEW FAXED TO [facility] [phone] RENESTINE Mcgee PH# [phone]. SPOKE WITH NYA OF [facility] PH# [phone], [facility] AWARE OF PLANNED DISCHARGE TODAY AND PER NYA THEY CAN SEND A NURSE TOMORROW. CHARGE NURSE RANDALL JONES.
[2017-01-24 12:00] VITALS: BP 95/56
--- NOTE | 2017-01-24 12:00 | NUR ---
PATIENT IS SLEEPING. TOOK BP AND IT WAS 82/55, WOKE HER UP AND RETOOK HER BP IT WENT UP TO 95/56. DR. FRANCO IS COMING IN AND WILL MAKE HER AWARE.
--- NOTE | 2017-01-24 12:40 | NUR ---
MADE DR AWARE ABOUT PATIENTS BP AND SHE STATED IT WAS OK. WANTS TO WEEN PATIENT OFF OF OXIMIZER.
[2017-01-24] MEDS ORDERED: HYDROcodone/APAP 5/325 MG 1 TAB TAB PO PRN (14:25)
[2017-01-24] MEDS ORDERED: FUROSEMIDE 20 MG/2 ML VIAL IVP SCH (14:30)
[2017-01-24] MEDS: ACETAMINOPHEN 325 MG TAB PO PRN (14:44)
[2017-01-24 16:00] VITALS: BP 90/50
--- NOTE | 2017-01-24 16:00 | NUR ---
RT CAME TO SWITCH PATIENT TO NASAL CANNULA. PATIENT IS SATURATING AT 88% WHICH IS OKAY WITH DR FRANCO. SHE SAID HER PARAMETER IS 88%-92%. WILL CONTINUE TO MONITOR.
--- NOTE | 2017-01-24 19:20 | NUR ---
RECEIVED REPORT FROM DAY RN KUNAL, PATIENT RESTING IN BED, NO S/S OF DISTRESS NOTED, AWAKE ALERT ORIENTEDX4, RESPIRATION EVEN AND DENIES SOB, VITAL SIGNS READ T 98.1, BP 94/53, HR 86, O2SAT 87%, ON O2 NC 3L. IV PATENT AND INTACT, PLAN OF CARE DISCUSSED, PATIENT VERBALIZED UNDERSTANDING, CALL LIGHT WITHIN REACH, SAFETY MEASURE ENSURED, WILL CONTINUE TO MONITOR.
--- NOTE | 2017-01-24 19:24 | NUR ---
ENDORSED PATIENT TO MANAGER LEADERSHIP DEVELOPMENT RN FOR CONTINUITY OF CARE. PATIENT IN STABLE CONDITION.
[2017-01-24 20:00] VITALS: BP 94/53
--- NOTE | 2017-01-24 20:55 | NUR ---
DUE MEDICATION GIVEN, NO S/S OF DISTRESS NOTED, O2SAT 89%. CALL LIGHT WITHIN REACH, SAFETY MEASURE ENSURED, WILL CONTINUE TO MONITOR.
--- NOTE | 2017-01-24 22:35 | NUR ---
NO CHANGE IN CONDITION, ASSISTED PATIENT REPOSITIONED HERSELF TO HER COMFORTABLE POSITION, NO S/S OF DISTRESS NOTED, O2SAT 88%, CALL LIGHT WITHIN REACH, SAFETY MEASURE ENSURED, WILL CONTINUE TO MONITOR.
[2017-01-25] VITALS: BP 96/58
--- NOTE | 2017-01-25 00:09 | NUR ---
DUE MEDICATION GIVEN, PATIENT TOLERATED WELL. VITAL SIGNS STABLE, O2SAT 90%. DENIES SOB AT THIS TIME. CALL LIGHT WITHIN REACH, SAFETY MEASURE ENSURED, WILL CONTINUE TO MONITOR.
[2017-01-25] MEDS: PHARMACY COMMENTS MC SCH ×4 (00:17→17:39)
[2017-01-25] MEDS: ALBUTEROL 0.083% 2.5 MG/3 ML NEBU IH SCH ×4 (01:01→18:42)
[2017-01-25] MEDS: IPRATROPIUM 0.02% 0.5 MG/2.5 ML NEBU IH SCH ×4 (01:02→18:41)
--- NOTE | 2017-01-25 02:15 | NUR ---
PATIENT IS SLEEPING, RESPIRATION EVEN AND UNLABORED, O2SAT 88%, NO S/S OF DISTRESS NOTED, CALL LIGHT WITHIN REACH, SAFETY MEASURE ENSURED, WILL CONTINUE TO MONITOR.
[2017-01-25 04:00] VITALS: BP 109/69
[2017-01-25] MEDS: metroNIDAZOLE 500 MG/NS PREMIX 100 ML IV SCH ×3 (04:57→20:34)
[2017-01-25] MEDS: VANCOMYCIN 500 MG VIAL PO SCH ×3 (05:04→17:36)
--- NOTE | 2017-01-25 05:21 | NUR ---
DUE MEDICATION GIVEN, PATIENT TOLERATED WELL, NO S/S OF DISTRESS NOTED, RESPIRATION EVEN AND UNLABORED, O2SAT 88%. CALL LIGHT WITHIN REACH, SAFETY MEASURE ENSURED, WILL CONTINUE TO MONITOR.
[2017-01-25 06:58] LABS: HEMATOCRIT 33.8 % (36-48); HEMOGLOBIN 10.9 g/dL (12.0-16.0); MEAN CORPUSCULAR HEMOGLOBIN 27 pg (27-31); MEAN CORPUSCULAR HGB CONC 32 g/dL (33-37); MEAN CORPUSCULAR VOLUME 83 fL (80-94); PLATELET COUNT (AUTO) 134 K/uL (140-450); RED BLOOD CELL COUNT(AUTO) 4.06 MIL/uL (4.20-5.40); RED CELL DISTRIBUTION WIDTH 15.4 % (11.6-13.7); WHITE BLOOD COUNT (AUTO) 3.9 K/uL (4.8-10.8)
[2017-01-25 07:13] LABS: ALBUMIN 2.1 g/dL (3.4-5.0); ANION GAP 10.3 (8-16); CARBON DIOXIDE 27.2 mmol/L (21-32); CREATININE 0.6 mg/dL (0.6-1.3); POTASSIUM 3.5 mmol/L (3.5-5.1); TOTAL BILIRUBIN 0.5 mg/dL (0.0-1.0)
--- NOTE | 2017-01-25 07:20 | NUR ---
ENDORSED PLAN OF CARE TO DAY RN TAYO. PATIENT IS STABLE. NO S/S OF DISTRESS NOTED.
[2017-01-25] MEDS ORDERED: BUPIVACAINE-MPF 0.25% 30 ML VIAL INJ ONE (07:25)
[2017-01-25 08:00] VITALS: BP 112/72
--- NOTE | 2017-01-25 08:03 | NUR ---
PATIENT IS AWAKE, ALERT, ORIENTED X 3. RESPIRATION EVEN, LUNGS SOUND DIMINISHED THROUGHOUT. CARDIAC S1,S2 PRESENT. BOWEL SOUNDS ACTIVE 4 QUADRANTS. DENIED DIARRHEA. IV 20G ON RIGHT THUMB INFUSING NS @ 10ML/HR, PATENT AND INTACT. SKIN DRY AND WARM. DENIED PAIN, N/V AT THIS TIME. CALL LIGHT WITHIN REACH. WILL CONTINUE TO MONITOR.
[2017-01-25 08:06] LABS: EOSINOPHILS % (MANUAL) 7 % (0-4); LYMPHOCYTES % (MANUAL) 44 % (20-46); MONOCYTES % (MANUAL) 4 % (5-12)
[2017-01-25] MEDS: PANTOPRAZOLE 40 MG INJ VIAL IVP SCH ×2 (10:08→20:34)
[2017-01-25] MEDS: FLUCONAZOLE 100 MG TAB PO SCH (10:09)
--- NOTE | 2017-01-25 10:10 | NUR ---
PATIENT WAS ASLEEP, EASILY AROUSABLE BY NAME. MEDS WERE GIVEN PER ORDER. NO DISTRESS NOTED AT THIS TIME. CALL LIGHT WITHIN REACH. WILL CONTINUE TO MONITOR
--- NOTE | 2017-01-25 10:57 | NUR ---
CM NOTE CONCURRENT REVIEW FAXED TO [facility] [phone] ERNESTINE Mcgee PH# [phone].
[2017-01-25] MEDS: LOPERAMIDE 2 MG CAP PO PRN (11:59)
[2017-01-25 12:00] VITALS: BP 103/69
--- NOTE | 2017-01-25 12:00 | NUR ---
PATIENT WAS AWAKE, ALERT. RESPIRATION EVEN, NO DISTRESS NOTED AT THIS TIME. MEDS WERE GIVEN PER ORDER. CALL LIGHT WITHIN REACH. WILL CONTINUE TO MONITOR
--- NOTE | 2017-01-25 13:45 | NUR ---
PATIENT IS AWAKE, ALERT. RESPIRATION EVEN, UNLABOR. RT AT BEDSIDE. MED WAS GIVEN PER ORDER. CALL LIGHT WITHIN REACH. WILL CONTINUE TO MONITOR
--- NOTE | 2017-01-25 14:44 | NUR ---
CM NOTE RECEIVED ORDER FOR VANCO PO PREAUTHORIZATION. SPOKE WITH BONNIE SINHA OF [facility] PH# [phone]. PER BONNIE SINHA OF [facility] PH# [phone], [facility] DOES NOT DO THE MEDICATION PREAUTHORIZATION. PER BONNIE JULY OF [facility] PH# [phone], SEND [facility] PRIOR AUTHORIZATION FORM TO [phone] PH# [phone]. FAXED ORDER AND PRESCRIPTION DRUG PREAUTHORIZATION FORM TO [facility] [phone]. CHARGE NURSE LEILANI JONES.
--- NOTE | 2017-01-25 15:15 | NUR ---
NOTIFIED DR. FRANCO REGARDING ABGS RESULT.
[2017-01-25 16:00] VITALS: BP 97/60
--- NOTE | 2017-01-25 16:15 | NUR ---
PATIENT IS SLEEPING, EASILY AROUSABLE BY NAME. CHANGED TO OXIMIZER AT 6L/MIN. RESPIRATION EVEN, NO DISTRESS NOTED AT THIS TIME. DENIED PAIN. CALL LIGHT WITHIN REACH. WILL CONTINUE TO MONITOR
--- NOTE | 2017-01-25 18:31 | NUR ---
PATIENT IS AWAKE, ALERT. RESPIRATION EVEN, UNLABOR. DENIED PAIN AT THIS TIME. NO DISTRESS NOTED. CALL LIGHT WITHIN REACH. WILL CONTINUE TO MONITOR
--- NOTE | 2017-01-25 19:13 | NUR ---
ENDORSEMENT GIVEN TO THE RN RADIOLOGY NURSE. PATIENT IS STABLE AT THIS TIME.
--- NOTE | 2017-01-25 19:30 | NUR ---
RECEIVED PT IN STABLE CONDITION FROM AM NURSE. AWAKE, ALERT AND ORIENTED X4 . ON TELE MONITOR. BEDREST/ WITH GEN WEAKNESS. HAS IVF INFUSING WELL ON THE RT WRIST #20. CLEAR AND PATENT. NO ACUTE DISTRESS ON O2 6L BY OXYMIZER. RT JUST CAME AND BREATHING TX GIVEN. SAT 93%. PLAN OF CARE DISCUSSED AND VERBALIZED UNDERSTANDING. BED ON LOW POSITION. FREQUENT ROUNDS NEEDED. CALL LIGHT PLACED WITHIN REACH. WILL CONTINUE TO MONITOR.
[2017-01-25 19:45] VITALS: BP 105/54
--- NOTE | 2017-01-25 20:50 | NUR ---
NIGHT MEDS GIVEN. TOLERATED WELL.
--- NOTE | 2017-01-25 22:30 | NUR ---
MADE ROUNDS. SLEEPING WITH O2 SAT 92%. NO DISTRESS NOTED. WILL CONTINUE TO MONITOR.
--- NOTE | 2017-01-26 00:15 | NUR ---
VITLA SIGNS STABLE. WITH NO RESPIRATORY DISTRESS NOTED. ON O26L BY OXYMIZER.
[2017-01-26 00:16] VITALS: BP 99/51
[2017-01-26] MEDS: VANCOMYCIN 500 MG VIAL PO SCH ×3 (00:22→13:09)
[2017-01-26] MEDS: PHARMACY COMMENTS MC SCH ×3 (00:23→12:00)
[2017-01-26] MEDS: IPRATROPIUM 0.02% 0.5 MG/2.5 ML NEBU IH SCH ×3 (01:37→14:09)
[2017-01-26] MEDS: ALBUTEROL 0.083% 2.5 MG/3 ML NEBU IH SCH ×3 (01:38→14:09)
--- NOTE | 2017-01-26 03:50 | NUR ---
PT IS AWAKE. VITLA SIGND TAKEN. STABLE. USED BEDPAN . VOIDED WELL. CLEANED AND KEPT DRY. NO DIARRHEA NOTED.
[2017-01-26 03:55] VITALS: BP 93/63
[2017-01-26] MEDS: metroNIDAZOLE 500 MG/NS PREMIX 100 ML IV SCH (05:02)
--- NOTE | 2017-01-26 05:45 | NUR ---
CHECKED ON PT. AWAKE. NO ACUTE DISTRESS NOTED. O2 SAT 93%.
--- NOTE | 2017-01-26 07:20 | NUR ---
ENDORSED PT IN STABLE CONDITION TO AM NURSE.
--- NOTE | 2017-01-26 07:21 | NUR ---
RECEIVED REPORT FROM MOLD SWABBER NURSE MILENA AT BEDSIDE FOR CONTINUITY OF CARE. PT IS AWAKE AND ORIENTED. INTRODUCED SELF, UPDATED BOARD AND DISCUSSED CARE PLAN WITH PT. PT VERBALIZED UNDERSTANDING. NO SIGNS OF DISTRESS. PT DENIES PAIN. O2 VIS OXYMIZER AT 6L/MIN. BED IN LOW POSITION, WHEELS LOCKED, CALL LIGHT WITHIN REACH. WILL CONTINUE TO MONITOR.
[2017-01-26 08:00] VITALS: BP 103/65
--- NOTE | 2017-01-26 08:16 | NUR ---
CM NOTE CONCURRENT REVIEW FAXED TO [facility] [phone] ERNESTINE Mcgee PH# [phone].
--- NOTE | 2017-01-26 08:23 | NUR ---
CM NOTE SPOKE WITH KERRIE OF [facility] [employer] # [phone] OPTION 3 TO FOLLOW UP. PER KERRIE, PENDING AUTHORIZATION FOR VANCO PO AND THAT IT TAKES AT LEAST 24-72 HRS TO PROCESS. NURSE CORNELL AWARE.
[2017-01-26] MEDS: PANTOPRAZOLE 40 MG INJ VIAL IVP SCH (09:34)
[2017-01-26] MEDS: FLUCONAZOLE 100 MG TAB PO SCH (09:34)
--- NOTE | 2017-01-26 09:45 | NUR ---
PHYSICAL THERAPY WITH PT. REPORTED THAT PT TOLERATED ACTIVITY WELL. O2 SAT 85% AFTER AMBULATION. PT ON O2 VIA OXIMIZER AT 7L SATING AT 92%. ADMINISTERED SCHEDULED MEDS. PT TOLERATED WELL. PT DENIES PAIN. INSTRUCTED PT TO USE CALL LIGHT IF NEED OF ASSISTANCE. PT VERBALIZED UNDERSTANDING. WILL CONTINUE TO MONITOR.
--- NOTE | 2017-01-26 11:15 | NUR ---
BONNIE NOTE RECEIVED FAX OF AUTHORIZATION APPROVAL FOR VANCOMYCIN PO FROM [facility] PRIOR AUTHORIZATION DEPT. COPY GIVEN TO CORNELL CRISTOBAL. Addendum: 01/26/17 at 1215 by Julia Peres CM RX [facility]#[id number] PHARMACY: [facility] # [phone]
[2017-01-26 12:00] VITALS: BP 96/61
--- NOTE | 2017-01-26 12:00 | NUR ---
DR. FRANCO CAME TO SEE PT. PLACED O2 NC 4L. O2 SATING AT 91%. DR. FRANCO GAVE ORDER FOR D/C. CALLED DR. NASIR JETT FOR D/C BY DR. FRANCO.
--- NOTE | 2017-01-26 14:31 | NUR ---
ADMINISTERED FLU VACCINE TO RIGHT DELTOID. PT TOLERATED WELL. PT AWARE OF D/C TODAY. STATED THAT HER RIDE WON'T BE HERE TILL 4PM TODAY. NO SIGNS OF DISTRESS. RT DONE GIVING BREATHING TREATMENT. WILL GET D/C FORMS READY UNTIL PT'S RIDE ARRIVES.
[2017-01-26] MEDS ORDERED: FLUC100T PO (14:36)
[2017-01-26] MEDS ORDERED: VANC125C4 PO (14:42)
--- NOTE | 2017-01-26 16:40 | NUR ---
PT D/C'D TO GO HOME. REMOVED ID BANDS AND TELE MONITOR. PT LEFT WITH D/C FORMS AND ALL PERSONAL BELONGINGS. LEFT VIA WHEELCHAIR ACCOMPANIED BY RN, BOYFRIEND AND FRIEND. LEFT IN STABLE CONDITION.
--- NOTE | 2017-01-26 16:58 | NUR ---
GAVE PT D/C FORMS, INSTRUCTIONS, AND RX. PT SIGNED FORMS AND VERBALIZED UNDERSTANDING. REMOVED IV CATHETER FROM RIGHT WRIST 20G. IV CATHETER TIP INTACT. APPLIED DRESSING AND PRESSURE TO SITE. NO BLEEDING NOTED. PT STILL WAITING FOR FRIEND FOR HEATER ENGINEER HELPER.
--- NOTE | 2017-01-27 07:37 | NUR ---
CM NOTE SPOKE WITH NYA OF [facility]# [phone] AND INFORMED HER THAT PATIENT HAS BEEN DISCHARGED YESTERDAY. PER NYA, [facility] WILL CALL PATIENT TODAY TO SEE PATIENT.
== END 2017-01-26 17:40 | disposition home or self-care (01) | DRG 372 ==
LOC: MED 10:30 → MTU 14:11
PROVIDERS: ADMIT Hospitalist; ATTEND Hospitalist
PROC: 3E0234Z Introduction of Serum, Toxoid and Vaccine into Muscle, Percutaneous Approach (ICD-10-PCS; principal; 2017-01-17)
DX: A04.72 Enterocolitis due to Clostridium difficile, not specified as recurrent (principal); E46 Unspecified protein-calorie malnutrition; Z99.81 Dependence on supplemental oxygen; K92.2 Gastrointestinal hemorrhage, unspecified; N39.0 Urinary tract infection, site not specified; F10.10 Alcohol abuse, uncomplicated; J44.9 Chronic obstructive pulmonary disease, unspecified; Z86.73 Personal history of transient ischemic attack (TIA), and cerebral infarction without residual deficits; Z72.89 Other problems related to lifestyle; G89.29 Other chronic pain; H54.61 Unqualified visual loss, right eye, normal vision left eye; Z87.891 Personal history of nicotine dependence; Z96.652 Presence of left artificial knee joint; Z68.27 Body mass index [BMI] 27.0-27.9, adult; Z90.49 Acquired absence of other specified parts of digestive tract; Z23 Encounter for immunization; B96.89 Other specified bacterial agents as the cause of diseases classified elsewhere
CPT/HCPCS: 36415; 36600; 71010; 71270; 80053; 81001; 82550; 82553; 82803; 83605; 83880; 84484; 85025; 85610; 85730; 87040; 87070; 87081; 87086; 90658; 93005; 94640; 96374; 96375; 97110; 97116; 97140; 97530; 99285; C9113; J0690; J0696; J1940; J2270; J2543; J3370; J3490; J7030; J7060; J7613; J7644; P9046; Q0092; Q9967

== ENCOUNTER 2017-03-16 07:10 | Inpatient (IN) | payer OTHER ==
[~2017-03-16] VITALS: Ht 157.5 cm; Wt 67.6 kg
[~2017-03-16 07:10] MED LIST changes: +FLUC100T PO; +VANC125C4 PO
--- NOTE | 2017-03-16 07:12 | NUR ---
PT MICHELE ALS. TAKEN TO BED 10
[2017-03-16 07:16] VITALS: BP 88/56
[2017-03-16] MEDS ORDERED: NACL 0.9% 1,000 ML IV ONE ×2 (07:35→10:15)
[2017-03-16] MEDS ORDERED: PANTOPRAZOLE 40 MG INJ VIAL IVP ONE (08:05)
[2017-03-16] MEDS ORDERED: ONDANSETRON 4 MG/2 ML VIAL IVP ONE (08:05)
--- NOTE | 2017-03-16 08:21 | NUR ---
PATIENT IS A 56 YO FEMALE BIB EMS FROM HOME FOR ABDOMINAL PAIN, VOMITING, AND WEAKNESS. AWAKE AND ALERT ON ARRIVAL TO BED 10, B/P LOW IV ESTABLISHED FLUIDS STARTED DR NOTIFIED. LABS AND TESTS IN PROGRESS.
[2017-03-16 09:24] LABS: BASOPHILS # (AUTO) 0.4 K/uL (0.00-0.22); BASOPHILS % (AUTO) 3.3 % (0.0-2.0); EOSINOPHILS # (AUTO) 0.7 K/uL (0-0.4); HEMATOCRIT 31.5 % (36-48); HEMOGLOBIN 9.8 g/dL (12.0-16.0); LYMPHOCYTES # (AUTO) 4.4 K/uL (2.5-16.5); LYMPHOCYTES % (AUTO) 40.2 % (20.5-51.1); MEAN CORPUSCULAR HEMOGLOBIN 24 pg (27-31); MEAN CORPUSCULAR HGB CONC 31 g/dL (33-37); MEAN CORPUSCULAR VOLUME 77 fL (80-94); MONOCYTES # (AUTO) 0.6 K/uL (0.8-1.0); NEUTROPHILS # (AUTO) 4.9 K/uL (1.8-7.7); NEUTROPHILS % (AUTO) 45.5 % (42.2-75.2); PLATELET COUNT (AUTO) 165 K/uL (140-450); RED CELL DISTRIBUTION WIDTH 16.5 % (11.6-13.7)
[2017-03-16 09:25] LABS: ANION GAP 18.2 (8-16); CARBON DIOXIDE 21.6 mmol/L (21-32); POTASSIUM 3.8 mmol/L (3.5-5.1)
[2017-03-16 09:26] LABS: APPEARANCE,URINE CLEAR (CLEAR); BILIRUBIN,URINE NEGATIVE (NEGATIVE); BLOOD, URINE NEGATIVE (NEGATIVE); COLOR,URINE YELLOW (YELLOW); LEUKOCYTE ESTERASE ,URINE NEGATIVE (NEGATIVE); NITRITE, URINE NEGATIVE (NEGATIVE); PH,URINE 5.5 (5.0-9.0); UGLUCOSE NEGATIVE (NEGATIVE)
[2017-03-16 09:28] LABS: PROTHROMBIN TIME 12.1 secs (10.8-13.4)
[2017-03-16 09:31] LABS: ALBUMIN 3.1 g/dL (3.4-5.0); TOTAL BILIRUBIN 0.5 mg/dL (0.0-1.0)
[2017-03-16 10:07] LABS: RBC,URINE NONE SEEN /HPF (0-5); WBC,URINE 0-5 (RARE) /HPF (0-5)
--- NOTE | 2017-03-16 10:49 | NUR ---
Patient appears to be resting comfortably in bed. BP 94/54, PULSE OX 92%, Respirations even and unlabored. DENIES ANY PAIN. NO VOMITING OR DIARRHEA AT THIS TIME
[2017-03-16] MEDS ORDERED: MORPHINE SULFATE 2 MG/ML SYR IVP PRN (10:55)
[2017-03-16] MEDS ORDERED: ALBUTEROL 0.083% 2.5 MG/3 ML NEBU INH PRN (10:55)
[2017-03-16] MEDS ORDERED: LORazepam 2 MG/ML VIAL IVP PRN (10:55)
[2017-03-16] MEDS ORDERED: ONDANSETRON 4 MG/2 ML VIAL IVP PRN (10:55)
[2017-03-16 11:30] VITALS: BP 95/55
--- NOTE | 2017-03-16 11:30 | NUR ---
PATIENT ARRIVED ON MST UNIT FROM ER VIA BED/GURNEY. PATIENT TRANSFERRED FROM ER BED TO MST BED, UNABLE TO AMBULATE AT THIS TIME DUE TO GENERALIZED WEAKNESS. PATIENT IN STABLE CONDITION. NO DISTRESS NOTED. RESPIRATIONS EVEN, UNLABORED, ON O2 3L/MIN WITH O2 SAT AT 92%. AAOX4, CALM, COOPERATIVE, SKIN COLOR APPROPRIATE TO ETHNICITY, WARM TO TOUCH. SKIN INTACT THROUGHOUT BODY. ABDOMEN SOFT, NON-DISTENDED. LUNGS CTA ON ALL LOBES. ORIENTED PATIENT TO ROOM AND CALL LIGHT. REVIEWED PLAN OF CARE WITH PATIENT. PATIENT VERBALIZED UNDERSTANDING. SAFETY MEASURES IN PLACE, CALL LIGHT WITHIN REACH, FALL PREVENTIONS IN PLACE. WILL CONTINUE TO MONITOR.
--- NOTE | 2017-03-16 11:31 | NUR ---
Yannick renteria in ED - 03/16/17 at 1515 by [facility] Patient will be admitted to care of [facility]. Admited to TELE. Will go to room 120A. Belongings list completed. Report to LEVAR LOREDO
--- NOTE | 2017-03-16 12:00 | NUR ---
DR. SALAZAR AT BEDSIDE REVIEWING PLAN OF CARE WITH PATIENT. WILL CONTINUE TO MONITOR.
[2017-03-16] MEDS: NACL 0.9% 1,000 ML IV SCH ×2 (12:22→20:54)
--- NOTE | 2017-03-16 13:00 | NUR ---
DR. EDDY AT BEDSIDE FOR GI CONSULT WITH PATIENT. WILL CONTINUE TO MONITOR.
[2017-03-16 13:08] LABS: HEMATOCRIT 23.7 % (36-48); HEMOGLOBIN 7.6 g/dL (12.0-16.0)
[2017-03-16] MEDS: SENNA 8.6 MG TAB PO SCH ×2 (13:30→16:48)
--- NOTE | 2017-03-16 13:31 | NUR ---
Patient will be admitted to care of DR day. Admited to TELE. Will go to room 120A. Belongings list completed. Report to LEVAR LOREDO
--- NOTE | 2017-03-16 13:41 | NUR ---
PATIENT LYING IN BED COMFORTABLY. NO DISTRESS NOTED. DENIES ANY PAIN. DENIES ANY NAUSEA/VOMITING AT THIS TIME. SCHEDULED MEDICATIONS DUE GIVEN. SAFETY MEASURES IN PLACE, CALL LIGHT WITHIN REACH. WILL CONTINUE TO MONITOR.
[2017-03-16 16:00] VITALS: BP 93/55
--- NOTE | 2017-03-16 16:50 | NUR ---
PATIENT SITTING IN BED WATCHING TV. NO DISTRESS NOTED. DENIES ANY PAIN. DENIES ANY NAUSEA/VOMITING. SCHEDULED MEDICATIONS DUE GIVEN. SAFETY MEASURES IN PLACE, CALL LIGHT WITHIN REACH. WILL CONTINUE TO MONITOR.
--- NOTE | 2017-03-16 18:04 | NUR ---
PATIENT SITTING IN BED WITH DINNER TRAY IN FRONT. NO DISTRESS NOTED. DENIES ANY PAIN. DENIES ANY NAUSEA/VOMITING. WILL CONTINUE TO MONITOR.
--- NOTE | 2017-03-16 19:18 | NUR ---
RECEIVED HANDOFF REPORT FROM AM RN. PATIENT A&OX4. PATIENT IV SITE PATENT AND INTACT. PATIENT DENIES PAIN. PATIENT DENIES ANY NAUSEA AND VOMITING. NO SIGNS OR SYMPTOMS OF ACUTE DISTRESS NOTED. SAFETY MEASURES ENSURED. CALL LIGHT WITHIN REACH. WILL CONTINUE TO MONITOR.
--- NOTE | 2017-03-16 19:27 | NUR ---
GAVE REPORT TO SUPERVISOR SHIP MAINTENANCE SERVICES NURSE FOR CONTINUITY OF CARE. PATIENT IN STABLE CONDITION.
[2017-03-16 20:00] VITALS: BP 96/56
--- NOTE | 2017-03-16 20:30 | NUR ---
REPORT GIVEN TO NIKKO CRISTOBAL FOR CONTINUITY OF CARE. PATIENT IN STABLE CONDITION.
--- NOTE | 2017-03-16 20:30 | NUR ---
PT GIVEN THE BEDPAN. SMALL AMOUNT WATERY DARK BROWN STOOL NOTED. NO S/S OF DISTRESS NOTED.
--- NOTE | 2017-03-16 20:31 | NUR ---
RECEIVED REPORT FROM CLARK CRISTOBAL PT IS AAOX4, ON 2L O2. SKIN IS INTACT, NO S/S OF DISTRESS. RESPIRATIONS ARE EVEN AND UNLABORED. EVANS CATHETER IS PATENT AND INTACT, DRAINING CLEAR YELLOW URINE BY GRAVITY. IV TO R FA 20G PATENT AND INTACT, INFUSING WELL. SKIN IS WARM AND DRY TO TOUCH. INITIAL ASSESSMENT COMPLETED. PLAN OF CARE DISCUSSED WITH PT AT THE BEDSIDE, VERBALIZED UNDERSTANDING. ALL SAFETY PRECAUTIONS MET, CALL LIGHT WITHIN REACH, BOARD UPDATED, WILL CONTINUE TO MONITOR
[2017-03-17] VITALS (13 sets, daily range): BP systolic 83–98; BP diastolic 50–64
--- NOTE | 2017-03-17 00:30 | NUR ---
PT GIVEN THE BEDPAN. SMALL AMOUNT WATERY DARK BROWN STOOL NOTED. NO S/S OF DISTRESS NOTED.
--- NOTE | 2017-03-17 02:00 | NUR ---
PT MOVED TO ISOLATION ROOM AND PUT ON CONTACT PRECAUTIONS, STOOL SAMPLE SENT TO LAB FOR C-DIFF
--- NOTE | 2017-03-17 02:15 | NUR ---
PT GIVEN THE BEDPAN. SMALL AMOUNT WATERY DARK BROWN STOOL NOTED. NO S/S OF DISTRESS NOTED.
[2017-03-17] MEDS: NACL 0.9% 1,000 ML IV SCH ×2 (03:13→16:54)
[2017-03-17 07:36] LABS: BASOPHILS # (AUTO) 0.1 K/uL (0.00-0.22); BASOPHILS % (AUTO) 1.9 % (0.0-2.0); EOSINOPHILS # (AUTO) 0.7 K/uL (0-0.4); EOSINOPHILS % (AUTO) 8.6 % (0.0-4.0); LYMPHOCYTES # (AUTO) 2.8 K/uL (2.5-16.5); LYMPHOCYTES % (AUTO) 35.2 % (20.5-51.1); MEAN CORPUSCULAR HEMOGLOBIN 25 pg (27-31); MEAN CORPUSCULAR HGB CONC 33 g/dL (33-37); MEAN CORPUSCULAR VOLUME 76 fL (80-94); MONOCYTES # (AUTO) 0.4 K/uL (0.8-1.0); MONOCYTES % (AUTO) 4.8 % (1.7-9.3); NEUTROPHILS # (AUTO) 3.9 K/uL (1.8-7.7); NEUTROPHILS % (AUTO) 49.5 % (42.2-75.2); PLATELET COUNT (AUTO) 111 K/uL (140-450); RED BLOOD CELL COUNT(AUTO) 2.77 MIL/uL (4.20-5.40); RED CELL DISTRIBUTION WIDTH 16.1 % (11.6-13.7)
--- NOTE | 2017-03-17 07:44 | NUR ---
REPORT GIVEN TO DAY NURSE FOR CONTINUITY OF CARE, PT IN STABLE CONDITION. NO S/S OF DISTRESS NOTED
--- NOTE | 2017-03-17 07:45 | NUR ---
RECEIVED PATIENT REPORT AT BEDSIDE FROM NIGHT NURSE. PATIENT IS AAOX3 AND SHOWS NO S/S OF ACUTE DISTRESS ON O2 @ 2L VIA NC. PATIENT DENIES PAIN AT THIS TIME, NO SOB OR DYSPNEA. IV NOTED ON THE R AC WITH IVF'S INFUSING WELL, IV IS PATENT AND INTACT. EVANS CATHETER IN PLACE DRAINING CLEAR YELLOW URINE. SKIN IS INTACT. PATIENT WAS EXPLAINED POC, HOSPITAL ENVIRONMENT, AND USE OF CALL LIGHT FOR ASSISTANCE. PATIENT VERBALIZED UNDERSTANDING, BED IS IN LOW POSITION WITH CALL LIGHT WITHIN REACH.
[2017-03-17 07:48] LABS: ANION GAP 12.6 (8-16); CARBON DIOXIDE 20.3 mmol/L (21-32); CREATININE 0.7 mg/dL (0.6-1.3); POTASSIUM 3.9 mmol/L (3.5-5.1)
[2017-03-17 08:10] LABS: WHITE BLOOD COUNT (AUTO) 7.9 K/uL (4.8-10.8)
[2017-03-17 08:16] LABS: HEPATITIS A ANTIBODY IGM Negative (Negative); HEPATITIS B CORE AB TOTAL Negative (Negative); HEPATITIS B SURFACE ANTIBODY Non Reactive (.); HEPATITIS B SURFACE ANTIGEN Negative (Negative)
[2017-03-17 08:19] LABS: HEMOGLOBIN 6.8 g/dL (12.0-16.0)
--- NOTE | 2017-03-17 08:30 | NUR ---
SPOKE WITH DR SALAZAR REGARDING PATIENT'S CRITICAL LAB VALUE OF HEMOGLOBIN OF 6.8. ORDERED [address] ORDERS[address]
--- NOTE | 2017-03-17 08:45 | NUR ---
DR SALAZAR AT BEDSIDE, POC WAS DISCUSSED AND ORDER FOR BLOOD TRANSFUSION, PATIENT TO SIGN CONSENT FORMS FOR BLOOD TRANSFUSION.
--- NOTE | 2017-03-17 08:47 | NUR ---
PATIENT HAS BEEN SCREENED AND CATEGORIZED HIGH NUTRITION RISK. PATIENT WILL BE SEEN WITHIN 1-2 DAYS OF ADMISSION. 03/16/17-03/17/[address]
--- NOTE | 2017-03-17 09:23 | NUR ---
SATURATION 91% ON SUPPLEMENTAL OXYGEN AT 2 LPM VIA NC INCREASED FIO2 TO 3LPM VIA NC BOOKER/RN NOTIFIED
--- NOTE | 2017-03-17 09:24 | NUR ---
SPOKE WITH ARMANDO FROM LAB REGARDING 1 UNIT OF PRBC ORDER STATED, "NOT SURE WHEN IT WILL BE READY, BUT I'LL NOTIFY YOU AND KEEP YOU UPDATED."
[2017-03-17] MEDS: PANTOPRAZOLE 40 MG INJ VIAL IVP SCH (09:28)
[2017-03-17] MEDS: SENNA 8.6 MG TAB PO SCH ×2 (09:29→13:52)
--- NOTE | 2017-03-17 09:30 | NUR ---
PATIENT O2 SAT IS 90-91% @ 2L VIA NC, PETER RT INCREASED O2 SAT @ 3L VIA NC. PATIENT DENIES SOB OR DYSPNEA.
--- NOTE | 2017-03-17 09:35 | NUR ---
ADMINISTERED SCHEDULED MEDICATIONS. PATIENT SWALLOWED WITHOUT DIFFICULTY. PATIENT'S NEEDS MET AT THIS TIME.
--- NOTE | 2017-03-17 10:15 | NUR ---
NEW IV ON THE RIGHT HAND 22 G, IVF'S INFUSING WELL, PATENT AND INTACT.
--- NOTE | 2017-03-17 11:13 | NUR ---
WENT TO GO [facility]LOOD HOWEVER TECH IS NOT AVAILABLE TO ASSIST DT BEING ON THE PHONE WITH I.T. SHE WILL CALL RN WHEN SHE IS AVAILABLE.
--- NOTE | 2017-03-17 11:30 | NUR ---
CALLED LAB REGARDING ORDER FOR 1 UNIT OF PRBC, NO ANSWER.
--- NOTE | 2017-03-17 11:50 | NUR ---
NOTIFIED RANDALL CHARGE NURSE REGARDING ORDER FOR 1 UNIT OF PRBC'S IS DELAYED, ATTEMPTED TO CALL LAB ALSO.
--- NOTE | 2017-03-17 11:50 | NUR ---
CALLED LAB REGARDING ORDER FOR 1 UNIT OF PRBC, NO ANSWER.
[2017-03-17 11:59] LABS: HEMATOCRIT 20.4 % (36-48); HEMOGLOBIN 6.7 g/dL (12.0-16.0)
--- NOTE | 2017-03-17 12:05 | NUR ---
RECEIVED CALL FROM SAGAR FROM LAB, ONE UNIT OF BLOOD IS READY FOR HOOF TRIMMER.
--- NOTE | 2017-03-17 12:15 | NUR ---
PATIENT V/S WERE TAKEN PRIOR TO ADMINISTERING OF BLOOD TRANSFUSION. PATIENT DENIES SOB, CHEST PAIN, BACK PAIN, AND DYSPNEA. RANDALL RICHARDSON RN AND I VERIFIED BLOOD. BLOOD TRANSFUSION BEGUN.
[2017-03-17 12:26] LABS: FOLIC ACID 6.7 ng/mL (>3.0)
--- NOTE | 2017-03-17 12:30 | NUR ---
PATIENT V/S ARE BEING TAKEN Q15M DURING BLOOD TRANSFUSION FIRST HR. PATIENT DENIES SOB, CHEST PAIN, BACK PAIN, AND DYSPNEA. PATIENT TOLERATING PROCEDURE WELL.
--- NOTE | 2017-03-17 12:45 | NUR ---
PATIENT V/S ARE BEING TAKEN Q15M DURING BLOOD TRANSFUSION FIRST HR. PATIENT DENIES SOB, CHEST PAIN, BACK PAIN, AND DYSPNEA. PATIENT TOLERATING PROCEDURE WELL.
--- NOTE | 2017-03-17 13:00 | NUR ---
PATIENT V/S ARE BEING TAKEN Q15M DURING BLOOD TRANSFUSION FIRST HR. PATIENT DENIES SOB, CHEST PAIN, BACK PAIN, AND DYSPNEA. PATIENT TOLERATING PROCEDURE WELL.
--- NOTE | 2017-03-17 13:15 | NUR ---
PATIENT V/S ARE BEING TAKEN Q15M DURING BLOOD TRANSFUSION FIRST HR. PATIENT DENIES SOB, CHEST PAIN, BACK PAIN, AND DYSPNEA. PATIENT TOLERATING PROCEDURE WELL.
--- NOTE | 2017-03-17 13:45 | NUR ---
PATIENT IS RESTING COMFORTABLY IN BED AND SHOWS NO S/S OF ACUTE DISTRESS, SHE STATES SHE HAS A MILD HEADACHE DR SALAZAR WAS PAGED AND ORDERED TYLENOL 650 MG PO Q6H PRN. WILL ORDER.
[2017-03-17] MEDS ORDERED: ACETAMINOPHEN 325 MG TAB PO PRN (13:55)
--- NOTE | 2017-03-17 14:15 | NUR ---
PATIENT IS RESTING COMFORTABLY IN BED AND SHOWS NO S/S OF ACUTE DISTRESS, SHE STATES SHE HAS A MILD HEADACHE THAT IS GOING AWAY.
--- NOTE | 2017-03-17 15:30 | NUR ---
PATIENT V/S CHARTED, BLOOD TRANSFUSION ENDED. PATIENT DENIES SOB, BACK PAIN, CHEST PAIN, AND DYSPNEA. PATIENT'S NEEDS MET AT THIS TIME. BED IN LOW POSITION WITH CALL LIGHT WITHIN REACH.
--- NOTE | 2017-03-17 15:34 | NUR ---
03/17/2017 RD INITIAL ASSESSMENT COMPLETED PLEASE REFER TO NUTRITION ASSESSMENT UNDER CARE ACTIVITY FOR ESTIMATED NUTRITIONAL NEEDS. CONTINUE NPO STATUS UNTIL MEDICALLY APPROPRIATE TO ADVANCE DIET ADVANCE TO REGULAR DIET TOLERATED RD TO FOLLOW-UP IN 2-3 DAYS PATIENT IS HIGH RISK. BABAR WATERS, RD
--- NOTE | 2017-03-17 16:10 | NUR ---
PATIENT WAS TAKEN TO OR FOR PROCEDURE. PATIENT LEFT IN STABLE CONDITION.
[2017-03-17] MEDS ORDERED: FERRIC GLUCONATE 125 MG in NACL 0.9% 100 ML IV SCH (17:00)
--- NOTE | 2017-03-17 17:00 | NUR ---
PATIENT BACK FROM PROCEDURE, PATIENT V/S CHARTED, PATIENT IN STABLE CONDITION.
[2017-03-17] MEDS ORDERED: POTASSIUM CHLORIDE 20% 40 MEQ/15 ML UDC GT SCH (17:15)
--- NOTE | 2017-03-17 17:56 | NUR ---
FAXED INITIAL REVIEW TO [facility] [phone] PHONE ERNESTINE [phone]
[2017-03-17] MEDS ORDERED: FERRIC GLUCONATE 62.5 MG/5 ML AMP IV SCH (18:00)
[2017-03-17] MEDS: FERROUS SULFATE 325 MG TABEC PO SCH (18:04)
--- NOTE | 2017-03-17 18:30 | NUR ---
ADMINISTERED SCHEDULED MEDICATIONS. IVP FERRLICIT 125 MG ONCE WAS GIVEN AT 12.5MG/MIN, PATIENT'S NEEDS MET AT THIS TIME, PATIENT SITTING UP IN BED EATING DINNER AND TOLERATING DIET WELL.
[2017-03-17] MEDS ORDERED: MIDAZOLAM 2 MG/2 ML VIAL IVP ONE (18:40)
[2017-03-17] MEDS ORDERED: fentaNYL 0.05 MG/ML VIAL IVP ONE (18:40)
--- NOTE | 2017-03-17 19:15 | NUR ---
PATIENT REPORT GIVEN AT BEDSIDE TO NIGHT NURSE, PATIENT ENDORSED IN STABLE CONDITION
--- NOTE | 2017-03-17 19:20 | NUR ---
RECEIVED PT FROM BOOKER RN PT IS AAOX3 ON BEDREST ON TELEMETRY SR, IV ON RT ARM INFUSING WELL ON 04 01 LTS VIA NC NOT DISTRESS NOTED AT THIS TIME INITIAL ASSESSMENT DONE
[2017-03-17] MEDS: LACTULOSE 20 GM/30 ML UDC PO SCH (20:48)
[2017-03-17] MEDS: SUCRALFATE 1 GM TAB PO SCH (20:48)
--- NOTE | 2017-03-17 21:00 | NUR ---
RELATIVE AT BED SIDE PT REPOSITIONED NOT DISTRESS NOTED
--- NOTE | 2017-03-17 22:30 | NUR ---
A BIG BM SOFT STOOL BLACK COLOR EVANS CATH DRAINING WELL YELLOW URINE,LINEN CHANGED
[2017-03-18] VITALS: BP 86/52
--- NOTE | 2017-03-18 | NUR ---
REPOSITIONED Q2H AND ASSISTING TO USE BED NI BLACK STOOL SOFT CONSISTENCY DENIES ANY PAIN
[2017-03-18] MEDS: NACL 0.9% 1,000 ML IV SCH (00:32)
[2017-03-18 04:00] VITALS: BP 107/59
--- NOTE | 2017-03-18 04:00 | NUR ---
SPONGE BATH GIVEN LINEN CHANGED DENIES ANY PAIN, ON TELE SR EVANS CATH DRAINING WELL YELLOW URINE, USING BEDPAN WITH SOFTH STOOL BLACK COLOR
--- NOTE | 2017-03-18 06:57 | NUR ---
PT HAS A SEMILIQUID STOOL DENIES ANY PAIN, ON TELEMETRY SR EVANS CATH DRAINING WELL YELLOW URINE, DENIES ANY PAIN
--- NOTE | 2017-03-18 07:15 | NUR ---
ENDORSEMENT RECEIVED FROM CROSSCUTTER ROLLED GLASS NURSE. PATIENT IS AWAKE, ALERT. RESPIRATION EVEN, UNLABOR ON 2L. SKIN DRY AND WARM. IV PATENT AND INTACT. DENIED PAIN, SOB AT THIS TIME. PLAN OF CARE WAS DISCUSSED WITH THE PATIENT. CALL LIGHT WITHIN REACH.
[2017-03-18 07:32] LABS: BASOPHILS # (AUTO) 0.3 K/uL (0.00-0.22); BASOPHILS % (AUTO) 4.1 % (0.0-2.0); EOSINOPHILS # (AUTO) 0.5 K/uL (0-0.4); EOSINOPHILS % (AUTO) 7.3 % (0.0-4.0); HEMOGLOBIN 8.7 g/dL (12.0-16.0); LYMPHOCYTES # (AUTO) 1.9 K/uL (2.5-16.5); LYMPHOCYTES % (AUTO) 27.4 % (20.5-51.1); MEAN CORPUSCULAR HEMOGLOBIN 25 pg (27-31); MEAN CORPUSCULAR HGB CONC 32 g/dL (33-37); MEAN CORPUSCULAR VOLUME 79 fL (80-94); MONOCYTES # (AUTO) 0.4 K/uL (0.8-1.0); MONOCYTES % (AUTO) 5.9 % (1.7-9.3); NEUTROPHILS # (AUTO) 3.7 K/uL (1.8-7.7); NEUTROPHILS % (AUTO) 55.3 % (42.2-75.2); PLATELET COUNT (AUTO) 92 K/uL (140-450); RED BLOOD CELL COUNT(AUTO) 3.43 MIL/uL (4.20-5.40); RED CELL DISTRIBUTION WIDTH 16.7 % (11.6-13.7); WHITE BLOOD COUNT (AUTO) 6.8 K/uL (4.8-10.8)
[2017-03-18 08:00] VITALS: BP 104/58
[2017-03-18] MEDS: SUCRALFATE 1 GM TAB PO SCH ×2 (08:38→12:24)
[2017-03-18] MEDS: PANTOPRAZOLE 40 MG INJ VIAL IVP SCH (08:38)
[2017-03-18] MEDS: FERROUS SULFATE 325 MG TABEC PO SCH (08:39)
[2017-03-18] MEDS: LACTULOSE 20 GM/30 ML UDC PO SCH (08:44)
[2017-03-18] MEDS ORDERED: POTASSIUM CHLORIDE 20% 40 MEQ/15 ML UDC GT SCH (09:00)
--- NOTE | 2017-03-18 10:15 | NUR ---
PATIENT IS SLEEPING COMFORTABLY. RESPIRATION EVEN, UNLABOR ON 4L NC. NO DISTRESS NOTED AT THIS TIME. CALL LIGHT WITHIN REACH
[2017-03-18 11:21] LABS: HEMATOCRIT 23.7 % (36-48); HEMOGLOBIN 7.9 g/dL (12.0-16.0)
--- NOTE | 2017-03-18 11:57 | NUR ---
PATIENT IS SLEEPING COMFORTABLY, EASILY AROUSABLE BY NAME. VS WAS TAKEN. RESPIRATION EVEN, UNLABOR ON 3L NC. DENIED SOB AT THIS TIME. CALL LIGHT WITHIN REACH
[2017-03-18 12:00] VITALS: BP 93/56
[2017-03-18] MEDS ORDERED: OMEP20TC12 PO (13:06)
[2017-03-18] MEDS ORDERED: SUCR1TAB56 PO (13:06)
[2017-03-18] MEDS ORDERED: FERR-18 PO (13:07)
--- NOTE | 2017-03-18 14:41 | NUR ---
EVANS CATHETER WAS REMOVED. URINE AMOUNT 500 ML, ALVIN, CLOUDY. BLADDER TRAINING INSTRUCTION WAS GIVEN. PATIENT TOLERATED WELL.
--- NOTE | 2017-03-18 16:25 | NUR ---
DISCHARGE INSTRUCTION AND PRESCRIPTION WERE GIVEN. PATIENT VERBALIZED UNDERSTANDING. IV WAS REMOVED, CATHETER TIP INTACT, NO ACTIVE BLEEDING SEEN, PATIENT TOLERATED WELL. ID BAND WAS REMOVED. VACCINES ARE UP TO DATE. ALL BELONGINGS ARE TAKEN WITH THE PATIENT. PATIENT HAD URINATION PRIOR DISCHARGE. PATIENT WAS ESCORTED OUT IN WHEELCHAIR BY FAMILY AND STAFF. PATIENT IS STABLE AT THIS TIME.
== END 2017-03-18 16:15 | disposition home or self-care (01) | DRG 377 ==
LOC: MED 07:10 → MTU 10:46
PROVIDERS: ADMIT Hospitalist; ATTEND Hospitalist
PROC: 0DB78ZX Excision of Stomach, Pylorus, Via Natural or Artificial Opening Endoscopic, Diagnostic (ICD-10-PCS; 2017-03-17)
PROC: 30233N1 Transfusion of Nonautologous Red Blood Cells into Peripheral Vein, Percutaneous Approach (ICD-10-PCS; 2017-03-17)
PROC: 0DB48ZX Excision of Esophagogastric Junction, Via Natural or Artificial Opening Endoscopic, Diagnostic (ICD-10-PCS; principal; 2017-03-17 13:00)
DX: K25.4 Chronic or unspecified gastric ulcer with hemorrhage (principal); J96.20 Acute and chronic respiratory failure, unspecified whether with hypoxia or hypercapnia; Z99.81 Dependence on supplemental oxygen; E44.0 Moderate protein-calorie malnutrition; W19.XXXA Unspecified fall, initial encounter; J44.9 Chronic obstructive pulmonary disease, unspecified; D50.0 Iron deficiency anemia secondary to blood loss (chronic); Z96.652 Presence of left artificial knee joint; Y93.89 Activity, other specified; Y92.091 Bathroom in other non-institutional residence as the place of occurrence of the external cause; Z68.27 Body mass index [BMI] 27.0-27.9, adult; Z87.891 Personal history of nicotine dependence; Y99.8 Other external cause status; Z86.73 Personal history of transient ischemic attack (TIA), and cerebral infarction without residual deficits; Z85.9 Personal history of malignant neoplasm, unspecified; Z90.49 Acquired absence of other specified parts of digestive tract; I85.00 Esophageal varices without bleeding
CPT/HCPCS: 36415; 51702; 71045; 74018; 76700; 80048; 80053; 81001; 82550; 82553; 82607; 82728; 82746; 83540; 83605; 83690; 84484; 85018; 85025; 85045; 85610; 85730; 86677; 86704; 86706; 86708; 86709; 86803; 86886; 86900; 86901; 86920; 87040; 87070; 87081; 87086; 87340; 93005; 96361; 96374; 96375; 99291; 99292; C9113; J2270; J2405; J2916; J7030; P9016; Q0092